=== PATIENT | female | born 1990 | race Caucasian/White ===

== ENCOUNTER 2017-07-11 06:38 | Inpatient (IN) | payer OTHER, SELFPAY ==
[2017-07-11 07:09] VITALS: BMI 27.3
[2017-07-11] MEDS: Lactated Ringers 1,000 ML 50 ML IV ×2 (07:12→09:00)
[2017-07-11 07:35] LABS: Hemoglobin 12.7 g/dl (12.0-15.0); Mean Corp Hgb Conc 33.4 g/gl (32-36); Mean Corpuscular Hgb 30.7 pg (27.0-32.0); Mean Corpuscular Volume 91.8 fL (81-99); Mean Platelet Vol. 10.2 fl (6.2-12.0); Platelet Count 212 K/mm3 (150-450); RBC Distribution Width CV 13.8 % (11.6-14.6); RBC Distribution Width SD 45.7 fl (35.1-43.9); Red Blood Count 4.14 M/mm3 (4.2-5.4); Scan Indicated on CBC? Y/N NO; White Blood Count 12.5 K/mm3 (4.4-11.0)
--- NOTE | 2017-07-11 08:46 | PCM.HP.OB ---
History Date of Admission: 07/11/17 Final JOSE: 07/13/17 Gestational age: 39 Weeks and 5 Days History of this : GBS negative Pertinent Past Medical History: none Allergies No Known Allergies Allergy (Verified 05/23/13 02:11) Current Medications Acetaminophen (Tylenol) 325 - 650 mg PO Q4H PRN PRN PRN Reason: PAIN OR FEVER >100.4F Al Hydroxide/Mg Hydroxide (Mylanta Ii) 15 - 30 ml PO Q4H PRN PRN PRN Reason: INDIGESTION Citric Acid/Sodium Citrate (Bicitra) 30 ml PO UD PRN Lactated Ringer's () 1,000 mls @ 50 mls/hr IV .Q20H BLAKE Oxytocin/Sodium Chloride () 30 units in 500 mls @ 1 mls/hr IV .Q500H BLAKE Nalbuphine HCl (Nubain) 5 - 10 mg IV Q3H PRN PRN PRN Reason: PAIN (4-10/10) Ondansetron HCl (Zofran) 4 mg IV Q8H PRN PRN PRN Reason: NAUSEA Promethazine HCl (Phenergan Iv) 6.25 - 12.5 mg IV Q4H PRN PRN; Protocol PRN Reason: IF NAUSEA PERSISTS Sodium Chloride () 5 - 15 ml IV UD BLAKE Smoking Status: Never smoker Alcohol: None Drug Use: none Number of Fetus(es): 1 Physical Exam General: Alert, Oriented x3 Abdomen: Soft, Non Tender, Non-Distended, Gravid Cervix Dilation (cm): 4 - on admission Assessment/Plan A&P: 27yo female @ 39.5 in labor Admit to L&D Pain - getting epidural now, will recheck cervix once comfortable GBS negative EFW - less than 4500g, patient with adequate pelvis Routine care
--- NOTE | 2017-07-11 10:43 | PCM.OB.VAG ---
Vaginal Delivery Maternal Presentation: Active Labor Amniotic Membrane Rupture Type: Spontaneous Amniotic Fluid Description: Clear Final JOSE: 07/13/17 Gestational age: 39 Weeks and 5 Days Date of Procedure: 07/11/17 Pre-Operative Diagnosis: Labor Post-Operative Diagnosis: Labor Surgery/ Procedure Performed: Spontaneous Vaginal Delivery Type of Anesthesia: Epidural Description of Procedure: patient c/c/+2 and pushing well. she delivered head easily. Gentle traction placed on head to allow delivery of anterior & posterior shoulders. No excess traction placed on head. body followed & placed on maternal abdomen. 3vc clamped & cut in delayed fashion. placenta delivered with gentle traction. good uterine tone obtained. Presentation: JERMAIN Placental Delivery Description: Expressed Cord Vessel Description: 3 Vessels Cord Entanglement: None - cord around body Infant A gender: Male (1 minute): 8 (5 minute): 9 Episiotomy Description: None Laceration: 2nd degree - perineal - repaired with 3-0 vicryl Medications given after delivery: IV Pitocin
[2017-07-11] MEDS: Oxytocin 30 units/NS 500 ml 30 UNITS/500 ML IV.SOLN 334 UNITS IV (12:14)
[2017-07-11] MEDS: Oxytocin 30 units/NS 500 ml 30 UNITS/500 ML IV.SOLN 167 UNITS IV (13:14)
[2017-07-11] MEDS: Acetaminophen 500 MG Tablet 1000 MG PO (13:16)
[2017-07-11] MEDS: Ibuprofen 600 MG Tablet PO ×2 (15:03→21:52)
[2017-07-11] MEDS: 0.9% Saline Lock 10 ML Syringe IV (15:04)
[2017-07-11 16:00] VITALS: BP 127/73; PULSE 103; TEMP 36.6; O2SAT 97
[2017-07-11 20:10] VITALS: BP 116/65; PULSE 92; RESP 16; TEMP 36.4
[2017-07-11 23:50] VITALS: BP 109/59; PULSE 79; RESP 18; TEMP 36.8
[2017-07-12 01:30] VITALS: BP 127/71; PULSE 91; RESP 18; TEMP 36.7
[2017-07-12 04:35] VITALS: BP 117/78; PULSE 87; RESP 16; TEMP 36.7
[2017-07-12] MEDS: Ibuprofen 600 MG Tablet PO (08:55)
[2017-07-12 09:00] VITALS: BP 109/54; PULSE 87; RESP 16; TEMP 36.9; O2SAT 98
--- NOTE | 2017-07-12 12:41 | PCM.DCVAG ---
Discharge Diet: No Restrictions Discharge Activity: May Drive, May Shower May resume sexual activity in: 6 weeks Weight Bearing Status: Weight bearing as tolerated Additional Instructions: If you experience any of the following, contact your healthcare provider. Bleeding that soaks a pad every hour for 2 hours Fever 100.4 or higher Unrelieved incision or abdominal pain Swelling, redness, discharge or bleeding from your incision or episiotomy site Your incision begins to separate Problems urinating (including inability to urinate or burning while urinating). Visual changes Severe headache Flu-like symptoms Pain or redness in one of both of your breasts Pain, warmth, tenderness or swelling in your legs, especially the calf area Frequent nausea and vomiting Symptoms of depression or anxiety If you experience any of the following, call 911 or go to the nearest Emergency Room. Chest pain Problems breathing Seizure activity Partial or complete paralysis of a body part, slurred speech, weakness or drooping of the face, or a sudden inability to walk or hold your balance Allergies/Adverse Reactions: Allergies No Known Allergies Allergy (Verified 05/23/13 02:11) Medications to take at Discharge Vits [Prenatabs FA ] 1 tablet PO DAILY 02/12/15 Orders to be completed after discharge: Electric breast pump Location: None Selected Primary Care Physician: Care Physician,No Primary [Primary Care Provider] -
--- NOTE | 2017-07-12 12:42 | DCINST_ITS ---
Discharge Diet: No Restrictions Discharge Activity: May Drive, May Shower May resume sexual activity in: 6 weeks Weight Bearing Status: Weight bearing as tolerated Additional Instructions: If you experience any of the following, contact your healthcare provider. * Bleeding that soaks a pad every hour for 2 hours * Fever 100.4 or higher * Unrelieved incision or abdominal pain * Swelling, redness, discharge or bleeding from your incision or episiotomy site * Your incision begins to separate * Problems urinating (including inability to urinate or burning while urinating) . * Visual changes * Severe headache * Flu-like symptoms * Pain or redness in one of both of your breasts * Pain, warmth, tenderness or swelling in your legs, especially the calf area * Frequent nausea and vomiting * Symptoms of depression or anxiety If you experience any of the following, call 911 or go to the nearest Emergency Room. * Chest pain * Problems breathing * Seizure activity * Partial or complete paralysis of a body part, slurred speech, weakness or drooping of the face, or a sudden inability to walk or hold your balance Allergies/Adverse Reactions: Allergies No Known Allergies Allergy (Verified 05/23/13 02:11) Medications to take at Discharge Vits [Prenatabs FA ] 1 tablet PO DAILY 02/12/15 Orders to be completed after discharge: Electric breast pump Location: None Selected Primary Care Physician: Care Physician,No Primary [Primary Care Provider] -
[2017-07-12 14:00] VITALS: BP 107/71; PULSE 70; RESP 16; TEMP 36.9; O2SAT 100
--- NOTE | 2017-07-12 14:13 | PCM.PN.BLA ---
Progress Note S: Patient sitting up in bed, bonding with . Patient denies any complaints or concerns today. Patient reports is going well. Patient denies CAMPBELL, dizziness or scotoma. Patient denies any issues with ambulation or urination. Patient desires to be discharged to home. O: VSS, Afebrile. H/H = 12.7/38.0 Nipples without cracks or blisters, no erythema noted Abdomen NT x 4 quadrants, FF midline @ 1FB below umbilicus +2/4 reflexes in LE, no edema, negative calf tenderness noted scant rubra lochia A: 27 y/o , s/p , PPD #1 P: 1) Discharge patient to home pending discharge 2) Anticipatory health teaching for PP period done 3) RTC in 6 weeks to [facility] for PP visit. Jaimee Mcdonald CNM
[2017-07-12] MEDS: Acetaminophen 500 MG Tablet 1000 MG PO (14:27)
--- NOTE | 2017-07-12 17:20 | NURSING ---
0900 While rounding, Mom states that latching is going so much better. Mom encouraged to call if we can be of assistance with latch or for a further consult. Davey
== END 2017-07-12 17:30 | disposition home or self-care (01) | DRG 775 ==
PROVIDERS: Obstetrics & Gynecology; Admitting Provider Obstetrics & Gynecology; Visit Provider Obstetrics & Gynecology
DX: O70.1 Second degree perineal laceration during delivery (principal); Z37.0 Single live birth; Z3A.39 39 weeks gestation of pregnancy
CPT/HCPCS: 59025; 59050; 85027; 86850; 86900; 99218; J7120; A4216; G0378

== ENCOUNTER 2020-09-22 18:55 | Inpatient (IN) | payer OTHER, SELFPAY ==
[2020-09-22] VITALS (8 sets, daily range): BP systolic 112–133; BP diastolic 69–80; PULSE 73–92; TEMP 36.4–37.3; O2SAT 96–97; BMI 26.3
[2020-09-22] MEDS: Lactated Ringers 1,000 ML 50 ML IV (19:45)
[2020-09-22 20:01] LABS: Absolute Lymphocyte Count 1.88 X10^3/uL (0.83-4.51); Basophil# 0.03 X10^3/uL; Basophil% 0.2 % (0-1); Eosinophil# 0.09 X10^3/uL; Eosinophils% 0.7 % (0-5); Hematocrit 36.7 % (37-47); Hemoglobin 12.1 g/dL (12.0-15.0); Lymphocyte # 1.88 X10^3/ul (0.83-4.51); Lymphocyte % 15.4 % (19-41); Mean Corpuscular Hgb 30.1 pg (27.0-32.0); Mean Corpuscular Volume 91.3 fL (81-99); Mean Platelet Vol. 9.9 fl (6.2-12.0); Monocyte# 1.19 X10^3/uL; Monocyte% 9.7 % (0-10); NRBC Flagged by Analyzer 0 % (0-5); Neutrophil # 8.96 X10^3/uL (2.7-7.7); Neutrophil % 73.3 % (47-70); Platelet Count 213 K/mm3 (150-450); RBC Distribution Width CV 13.2 % (11.6-14.6); RBC Distribution Width SD 44.1 fl (35.1-43.9); Red Blood Count 4.02 M/mm3 (4.2-5.4); White Blood Count 12.2 K/mm3 (4.4-11.0)
[2020-09-22] MEDS: 0.9% Normal Saline Single 100 ML IV.SOLN. INTRA-UTER (20:15)
[2020-09-22] MEDS: Oxytocin 30 units/NS 500 ml 30 UNITS/500 ML IV.SOLN IV (20:18)
--- NOTE | 2020-09-22 20:23 | PCM.HP.OB ---
HPI - General General Date of Admission: 09/22/20 HPI Narrative KEILA MALDONADO, is a 30 F who presents at 40w5d for postdates induction of labor. . History of macrosomic 9lb 1oz. No complications this . Maternal Data Information Final JOSE: 09/17/20 Final JOSE Source: LMP PFSH PFS Medical History (Updated 09/22/20 @ 20:44 by Symone Orozco CNM) macrosomia Home Medications Prenatabs FA 1 tab PO DAILY 02/12/15 [History Last Taken 09/21/20 08:00] Allergy/AdvReac Type Severity Reaction Status Date / Time No Known Allergies Allergy Verified 09/22/20 19:37 Surgical History History of surgery Social History Smoking Status: Never smoker History Elective abortions Hx Para 2 Spontaneous abortions Hx # Term Pregnancies Ectopic pregnancies Hx # Pregnancies Multiple births # of living children NST FHR Rate Baby A Baseline: 145 Variability:: Moderate Accelerations:: 15 x 15 Decelerations:: None FHR Category:: Category I Uterine Activity:: Irregular Vital Signs Vital Signs Vital Signs: 09/22/20 19:41 Temperature 99.2 F H Temperature Source Temporal Pulse Rate 92 Blood Pressure 133/80 H BP Systolic 133 BP Diastolic 80 Pulse Ox 97 Weight Weight: 173 lb Body Mass Index (BMI) 26.3 Physical Exam Narrative Reyes catheter inserted over stylus into cervical os without difficulty. 30ml NS instilled. Const alert and oriented x3 General Appearance: cooperative Orientation / Consciousness: awake, oriented to person, oriented to place and oriented to time Exam Limitations: no limitations HEENT normocephalic Head and Scalp: normal to inspection, normocephalic and atraumatic Face and Sinus: normal facial exam Eyes General Eye: normal appearance of both eyes Neck full ROM Chest Chest: symmetrical chest wall rise Resp normal respiratory effort and normal air movement Auscultation: clear to auscultation bilaterally Cardio regular rate, regular rhythm, S1 normal heart sound, S2 normal heart sound, no murmurs, no rub, no gallops and no clicks GI normal to inspection, nondistended, normoactive bowel sounds and non-tender appearance of the vagina normal Bladder / Kidney Exam: no CVA tenderness Manual OB Exam: estimated gestational size appropriate, presentation cephalic, dilated 1 cm, effaced 50 and station -2 Back/Spine normal ROM Extremity normal to inspection and full ROM Skin no rashes or lesions noted Neuro oriented x3, CN's II-XII intact bilaterally and moves all extremities Sensorium / Orientation: awake, alert and oriented to person Motor Exam: clonus absent Deep Tendon Reflexes: Rt Patellar (L4): 2+ and Lt Patellar (L4): 2+ Labs Labs Labs: Blood Type A POSITIVE Antibody Screen NEGATIVE Hct 36.7 % (37-47) L Hgb 12.1 g/dL (12.0-15.0) Rhogam given: No RPR negative HIV negative A positive, antibody screen negative Rubella Immune HBsAG Negative Hep C Negative COVID negative GBS negative Urine tox negative GC/CT negative Assessment & Plan (1) Post-dates : (2) Encounter for induction of labor: (3) History of delivery of macrosomal infant: PLAN: 1)Admit to labor and delivery 2) IV, routine labs 3) GBS negative 4) COVID negative 5) Continuous EFM 6) Reyes with low dose pitocin for induction of labor 7) Epidural per patient request for pain management 8) Dr. Keating collaborative physician and notified of patient status.
[2020-09-23] VITALS (44 sets, daily range): BP systolic 101–170; BP diastolic 54–91; PULSE 58–110; RESP 16–18; TEMP 36.2–37.3; O2SAT 94–99
[2020-09-23] MEDS: Lactated Ringers 500 ML 999 ML IV (03:51)
[2020-09-23] MEDS: fentaNYL-bupivacaine (epidural) 100 ML BAG EPIDURAL ×2 (05:05→09:10)
[2020-09-23] MEDS: Lactated Ringers 1,000 ML 200 ML IV (07:09)
--- NOTE | 2020-09-23 08:11 | PN_ITS ---
Subjective Subjective Resting with epidural in bed. at bedside. Objective Data Objective Data Vital Signs: Vital Signs Temp Pulse BP Pulse Ox 97.3 F L 76 110/57 L 99 09/23/20 07:18 09/23/20 07:18 09/23/20 07:18 09/23/20 06:48 Weight: 173 lb Body Mass Index (BMI) 26.3 Intake & Output: Intake and Output for Last 24 Hours 09/21/20 09/22/20 09/23/20 23:59 23:59 23:59 Intake Total 21.3 / 21.3 1545.47 / 1545.47 Output Total 400 / 400 1200 / 1200 Balance -378.7 / -378.7 345.47 / 345.47 Lab / Micro Data Result Diagrams: 09/22/20 19:45 Labs: Laboratory Results - last 24 hr 09/22/20 09/22/20 19:45 19:45 WBC 12.2 H RBC 4.02 L Hgb 12.1 Hct 36.7 L MCV 91.3 MCH 30.1 MCHC 33.0 RDW Std Deviation 44.1 H RDW Coeff of Ne 13.2 Plt Count 213 MPV 9.9 Immature Gran % (Auto) 0.700 Neut % (Auto) 73.3 H Lymph % (Auto) 15.4 L [place] % (Auto) 9.7 Eos % (Auto) 0.7 Baso % (Auto) 0.2 Absolute Neuts (auto) 9.0 H Absolute Lymphs (auto) 1.88 Nucleated RBC % 0 Blood Type A POSITIVE Antibody Screen NEGATIVE Physical Exam Narrative FHT 130, moderate variability, accels, early and occasional variable decels Category 2 TOCO:every 2-3 minutes Cervix: vertex, 5cm/70%/-1 AROM for small amount of meconium stained fluid Assessment & Plan Assessment/Plan (1) Post-dates : (2) Encounter for induction of labor: (3) History of delivery of macrosomal infant: PLAN: 1) Continue with active management, pitocin at 20 mu's 2) AROM, meconium stained fluid, pediatricians to be present at delivery 3) Epidural effective for pain management 4) Positional changes and peanut ball 5) notified of patient status
[2020-09-23] MEDS: Oxytocin 30 units/NS 500 ml 30 UNITS/500 ML IV.SOLN 334 UNITS IV (10:03)
--- NOTE | 2020-09-23 10:23 | EX.PCM.OBRPT ---
Maternal Data Information Final JOSE: 09/24/20 Final JOSE Source: LMP Gestational age: 40W6D Vaginal Delivery Maternal Presentation Maternal Presentation: Medically Indicated Induction Maternal Presentation: POSTDATES Type of Induction: Pitocin and Reyes Bulb Operative Information Date of Procedure: 09/23/20 Pre-Operative Diagnosis: postdates induction of labor Post-Operative Diagnosis: , first degree perineal laceration Surgery / Procedure Performed: Spontaneous Vaginal Delivery Type of Anesthesia: Epidural Estimated Blood Loss: 300ml Time of Delivery: 09:59 Findings Description of Procedure: Progressed from 6cm to complete quickly and feeling urge to push. of viable male infant over first degree perineal laceration. APGARS 9,9. head delivered with body forthcoming. Infant placed on maternal abdomen, spontaneous cry, mouth and nares suctioned for secretions. Pitocin started for active 3rd stage management. Placenta delivered with expression, intact via chucky, 3 vessel cord. perineum inspected and revealed first degree perineal laceration. Repaired with 3.0 vicryl and epidural analgesia, well approximated and hemostasis achieved. Fundus firm, EBL 300ml. Vaginal sweep completed, sponge and instrument count correct. Mom and baby stable, planning to breastfeed. Family bonding well. notified. Presentation: JERMAIN Amniotic Membrane Rupture Type: Artificial Amniotic Fluid Description: Clear Placental Delivery Description: Spontaneous Placenta Disposition: [facility] Cord Vessel Description: 3 Vessels Cord Entanglement: None A Gender: Male (1 minute): 9 (5 minute): 9 Delayed Cord Clamping: Yes Post Vaginal Delivery Medications Given After Delivery: IV Pitocin Episiotomy Description: None Laceration: Perineal Extension/lac and 1st degree Complication Complications: None
[2020-09-23] MEDS: 0.9% Saline Lock 10 ML Syringe IV (12:59)
[2020-09-23] MEDS: Ibuprofen 600 MG Tablet PO (17:09)
[2020-09-24 00:25] VITALS: BP 125/58; PULSE 72; RESP 18; TEMP 36.7
[2020-09-24 04:22] VITALS: BP 129/56; PULSE 75; RESP 18; TEMP 36.4
[2020-09-24 04:49] LABS: Hematocrit 35.5 % (37-47); Hemoglobin 11.9 g/dL (12.0-15.0); Mean Corp Hgb Conc 33.5 g/dL (32-36); Mean Corpuscular Hgb 30.7 pg (27.0-32.0); Mean Corpuscular Volume 91.5 fL (81-99); Mean Platelet Vol. 9.7 fl (6.2-12.0); Platelet Count 198 K/mm3 (150-450); RBC Distribution Width CV 13.4 % (11.6-14.6); Red Blood Count 3.88 M/mm3 (4.2-5.4); White Blood Count 16.2 K/mm3 (4.4-11.0)
--- NOTE | 2020-09-24 07:48 | PCM.PROGNOTE ---
Subjective Subjective Doing well per patient and nursing staff. Ambulating and taking PO without difficulty. Voiding and passing flatus. . Denies headache, visual changes, chest pain, shortness of breath, leg pain, increased bleeding or clots. Lochia normal. Pain controlled. Planning D/C home today. Objective Data Objective Data Vital Signs: Vital Signs Temp Pulse Resp BP Pulse Ox 97.5 F L 75 18 129/56 H 98 09/24/20 04:22 09/24/20 04:22 09/24/20 04:22 09/24/20 04:22 09/23/20 12:20 Oxygen Delivery Method Room Air Weight: 173 lb Body Mass Index (BMI) 26.3 Intake & Output: Intake and Output for Last 24 Hours 09/22/20 09/23/20 09/24/20 23:59 23:59 23:59 Intake Total 21.3 / 21.3 2783.14 / 2783.14 Output Total 400 / 400 3100 / 3100 Balance -378.7 / -378.7 -316.86 / -316.86 Lab / Micro Data Result Diagrams: 09/24/20 04:35 Labs: Laboratory Results - last 24 hr 09/24/20 04:35 WBC 16.2 H RBC 3.88 L Hgb 11.9 L Hct 35.5 L MCV 91.5 MCH 30.7 MCHC 33.5 RDW Std Deviation 45.0 H RDW Coeff of Ne 13.4 Plt Count 198 MPV 9.7 Physical Exam Const alert and oriented x3 General Appearance: cooperative Orientation / Consciousness: awake, oriented to person, oriented to place and oriented to time Exam Limitations: no limitations HEENT normocephalic Head and Scalp: normal to inspection, normocephalic and atraumatic Face and Sinus: normal facial exam Eyes General Eye: normal appearance of both eyes Neck full ROM Chest Chest: symmetrical chest wall rise Resp normal respiratory effort and normal air movement Auscultation: clear to auscultation bilaterally Cardio regular rate, regular rhythm, S1 normal heart sound, S2 normal heart sound, no murmurs, no rub, no gallops and no clicks GI normal to inspection, nondistended, normoactive bowel sounds and non-tender GI Narrative: fundus firm 2 below U appearance of the vagina normal Bladder / Kidney Exam: no CVA tenderness Back/Spine normal ROM Extremity normal to inspection and full ROM Skin no rashes or lesions noted Neuro oriented x3, CN's II-XII intact bilaterally and moves all extremities Sensorium / Orientation: awake, alert and oriented to person Motor Exam: clonus absent Deep Tendon Reflexes: Rt Patellar (L4): 2+ and Lt Patellar (L4): 2+ Assessment & Plan Assessment/Plan (1) Vaginal delivery: (2) First degree perineal laceration: PLAN: 1) Routine and discharge instructions 2) instructions 3) Declines prescription for pain medication 4) Vitals stable 5) Hgb stable 6) D/C home today 7) Follow up in 2 weeks and 6 weeks for PP care
[2020-09-24 07:51] VITALS: BP 111/82; PULSE 87; RESP 16; TEMP 36.6
--- NOTE | 2020-09-24 07:53 | PCM.DC ---
Discharge Instructions Diet Discharge Diet: No restrictions Activity Discharge Activity: Return to Normal Activity May resume sexual activity in: 6 weeks Weight Bearing Status: Full weight bearing Dressing / Incision Call your doctor if your incision/area has: Sudden Increased Bleeding, Increased Pain/ Swelling, Increased Redness and Foul Smelling Discharge Call your doctor if you observe: Fever of 101 or Higher, Inability to urinate, Inability to have a bowel movement, Using more than one pad per hour, Shortness of breath, Dizziness, Fainting spells, Chest pain, Increased palpitations (irregular heartbeat), Calf discomfort and Uncontrolled pain Follow Up Care Please Follow Up With: Symone Orozco CNM When: 2 weeks for virtual visit and 6 weeks for visit Test Results: Test results from this visit will be discussed in further detail at your follow-up appointment, if applicable. Discharge Plan Admission Admit Date/Time: 09/22/20 18:55 Primary Reason for Your Visit: Induction of labor, vaginal delivery Attending Provider: Symone Orozco Primary Care Provider: Care Physician,Naomi Primary Instructions Patient Instructions: After a Vaginal , at Home Discharge Orders/Prescriptions Prescriptions: New acetaminophen 500 mg Tablet 1,000 mg PO Q6H PRN PRN (Reason: Pain 1-10 Or Fever) Qty: 0 RF: 0 Dermoplast (with menthol) 20-0.5 % Aerosol 1 applic topical TID PRN PRN (Reason: for perineal discomfort) Qty: 0 RF: 0 ibuprofen 600 mg Tablet 600 mg PO Q6H PRN PRN (Reason: Pain Score 1-3) Qty: 0 RF: 0 Continued Prenatabs FA 1 TABLET tablet 1 tab PO DAILY RF: 0 Referrals / Follow Up: Symone Orozco CNM [Certified Nurse Health Promotion Manager] - Within 2 Weeks (2 weeks virtual visit and 6 weeks in office) Care Physician,No Primary [Primary Care Provider] - Disposition Disposition (needs filled in before D/C Order can be placed): Home, self care
--- NOTE | 2020-09-28 15:06 | NURSING ---
Left voicemail for follow up phone call no answer.
== END 2020-09-24 12:00 | disposition home or self-care (01) | DRG 807 ==
PROVIDERS: Admitting Provider Advanced Practice Midwife; Visit Provider Advanced Practice Midwife
DX: O48.0 Post-term pregnancy (principal); Z37.0 Single live birth; Z3A.40 40 weeks gestation of pregnancy; O77.0 Labor and delivery complicated by meconium in amniotic fluid; O70.0 First degree perineal laceration during delivery
CPT/HCPCS: 59025; 59050; 85025; 85027; 86850; 86900; 86901; 99218; J7120; A4216; G0378

== ENCOUNTER → 2022-05-02 | Outpatient (CLI) | payer OTHER, SELFPAY | END | disposition home or self-care (01) | LOC: LABSPEC 15:25 | PROVIDERS: Referring Provider Family Medicine; Visit Provider Family Medicine | DX: N39.0 Urinary tract infection, site not specified (principal) | CPT/HCPCS: 87086; 87088; 87186 ==

== ENCOUNTER → 2022-06-03 | Outpatient (CLI) | payer OTHER, SELFPAY | END | disposition home or self-care (01) | LOC: LABSPEC 12:09 | PROVIDERS: PCP Nurse Practitioner Family; Referring Provider Nurse Practitioner Family; Visit Provider Nurse Practitioner Family | DX: R31.9 Hematuria, unspecified (principal) | CPT/HCPCS: 87086; 87088; 87186 ==

== ENCOUNTER → 2022-09-10 | Outpatient (CLI) | payer OTHER, SELFPAY | END | disposition home or self-care (01) | LOC: LABSPEC 10:32 | PROVIDERS: PCP Nurse Practitioner Family; Referring Provider Family Medicine; Visit Provider Family Medicine | DX: R31.9 Hematuria, unspecified (principal) | CPT/HCPCS: 87086 ==

== ENCOUNTER → 2022-10-30 | Outpatient (CLI) | payer OTHER, SELFPAY | END | disposition home or self-care (01) | LOC: LABSPEC 12:42 | PROVIDERS: PCP Nurse Practitioner Family; Referring Provider Family Medicine; Visit Provider Family Medicine | DX: N39.0 Urinary tract infection, site not specified (principal) | CPT/HCPCS: 87077; 87086; 87088; 87186 ==

== ENCOUNTER → 2022-11-16 | Outpatient (CLI) | payer OTHER, SELFPAY ==
--- NOTE | 2022-11-16 07:48 | US_ITS ---
STUDY: RENAL ULTRASOUND - COMPLETE REASON FOR EXAM: Female, 32 years old. UTI TECHNIQUE: Ultrasound evaluation of the kidneys was performed with real-time and static ellington-scale imaging. COMPARISON: None. FINDINGS: RIGHT KIDNEY: Normal location of the right kidney, which is normal in size. The right kidney measures 10.6 cm. There is a normal cortex of the right kidney. The renal cortex measures 1.1 cm. There is no right renal mass or cyst. There are no right renal calculi. There is no right hydronephrosis. DISTAL RIGHT URETER: There is non-visualization of the distal right ureter. There is no demonstrated right ureterovesical junction calculus. There is a visualized right ureteral jet. LEFT KIDNEY: Normal location of the left kidney, which is normal in size. The left kidney measures 12.0 cm. There is a normal cortex of the left kidney. The renal cortex measures 1.9 cm. There is no left renal mass or cyst. There are no left renal calculi. There is no left hydronephrosis. DISTAL LEFT URETER: There is non-visualization of the distal left ureter. There is no demonstrated left ureterovesical junction calculus. There is a visualized left ureteral jet. BLADDER: The distended urinary bladder has a volume of 32 ml. The empty urinary bladder has a volume of ml. There is a normal wall thickness of the distended urinary bladder. There is no demonstrated mass within the urinary bladder. There are no demonstrated bladder calculi. US/Kidney and Bladder IMPRESSION: Normal ultrasound of the kidneys and urinary bladder. Electronically Signed: Reji Ruiz MD at 10:15 EDT ,
== END | disposition home or self-care (01) ==
LOC: US 07:42
PROVIDERS: PCP Family Medicine; Referring Provider Urology; Visit Provider Urology
DX: N39.0 Urinary tract infection, site not specified (principal)
CPT/HCPCS: 76770

== ENCOUNTER → 2023-12-15 | Outpatient (CLI) | payer OTHER, SELFPAY | END | disposition home or self-care (01) | LOC: MTLAB 12:55 | PROVIDERS: PCP Family Medicine; Referring Provider Physician Assistant; Visit Provider Physician Assistant | DX: L40.0 Psoriasis vulgaris (principal); Z79.899 Other long term (current) drug therapy | CPT/HCPCS: 36415; 86480 ==

== ENCOUNTER → 2024-01-07 | Outpatient (CLI) | payer OTHER, SELFPAY ==
[2024-01-09 16:10] LABS: QNTFERON TB Mitogen Value > 10.00 IU/mL (.); QNTFERON TB Nil Value 0.03 IU/mL (.); QNTFERON TB1+ Ag Value 0.04 IU/mL (.); QNTFERON TB2+ Ag Value 0.05 IU/mL (.); QNTIFERON TB Positive Criteria Negative (Negative)
== END | disposition home or self-care (01) ==
PROVIDERS: PCP Family Medicine; Referring Provider Physician Assistant; Visit Provider Physician Assistant
DX: L40.0 Psoriasis vulgaris (principal); Z79.899 Other long term (current) drug therapy
CPT/HCPCS: 36415; 86480

== ENCOUNTER 2024-05-31 12:39 | Emergency (ER) | payer OTHER, SELFPAY ==
[2024-05-31 12:40] VITALS: BP 126/56; PULSE 132; RESP 26; TEMP 37.7; O2SAT 100; BMI 23.6
--- NOTE | 2024-05-31 12:51 | RAD_ITS ---
PROCEDURE: CHEST 1 VIEW (PORTABLE) REASON FOR EXAM: Shortness of breath. TECHNIQUE: Frontal view of the chest. COMPARISON: None. FINDINGS: The cardiac and mediastinal contours are normal. No acute consolidation, pleural effusion or pneumothorax. The visualized osseous structures demonstrate no acute abnormality. RAD/Chest 1 View (Portable) IMPRESSION: No acute consolidation, pleural effusion or pneumothorax. Reading Location: [id number]
[2024-05-31 13:15] LABS: Absolute Lymphocyte Count 0.88 X10^3/uL (0.83-4.51); Absolute Neutrophil Count 5.4 X10^3/uL (2.0-7.7); Basophil# 0.02 X10^3/uL; Basophil% 0.3 % (0-1); Hematocrit 39.5 % (37-47); Hemoglobin 13.1 g/dL (12.0-15.0); Lymphocyte # 0.88 X10^3/ul (0.83-4.51); Lymphocyte % 12.7 % (19-41); Mean Corp Hgb Conc 33.2 g/dL (32-36); Mean Corpuscular Hgb 28.6 pg (27.0-32.0); Mean Corpuscular Volume 86.2 fL (81-99); Mean Platelet Vol. 9.6 fl (6.2-12.0); Monocyte# 0.64 X10^3/uL; Monocyte% 9.2 % (0-10); NRBC Flagged by Analyzer 0 % (0-5); Neutrophil # 5.38 X10^3/uL (2.7-7.7); Neutrophil % 77.4 % (47-70); Platelet Count 190 K/mm3 (150-450); RBC Distribution Width CV 12.5 % (11.6-14.6); RBC Distribution Width SD 39.1 fl (35.1-43.9); Red Blood Count 4.58 M/mm3 (4.2-5.4)
[2024-05-31 13:24] LABS: Anion Gap 10 (5-15); BUN 8 mg/dL (7-18); BUN/Creat Ratio 11.1 RATIO (10-20); Calcium,Total 8.8 mg/dL (8.5-10.1); Chloride 107 mmol/L (98-107); Creatinine, Serum 0.72 mg/dL (0.55-1.02); EST Glomerular Filtration Rate 98 mL/min (>60); Est Glom Filt Rate - Afr Amer 119 mL/min (>60); Estimated Creatinine Clearance 111.06 ml/min; Glucose 119 mg/dL (74-106); Potassium 3.3 mmol/L (3.5-5.1); Sodium Level 138 mmol/L (136-145)
[2024-05-31 13:43] VITALS: BP 116/67; PULSE 98; RESP 16; TEMP 37.4; O2SAT 100; O2SAT 98
--- NOTE | 2024-05-31 14:25 | EDS_ITS ---
HPI HPI - URI History of Present Illness Chief Complaint: Shortness of Breath Detail of Chief Complaint: Shortness of breath Informant: patient Narrative Narrative: Patient presents with shortness of breath and some chest tightness that started yesterday. She describes a cough and fever up to 100.1. Multiple family members at home ill with flulike symptoms. Patient had some nausea as well and vomited once yesterday and once today. She denies diarrhea. She denies abdominal pain. She denies urinary symptoms. Last menstrual period was 2 weeks ago and she does not believe she is ROS ROS ED Review of Systems ROS Unobtainable: other Constitutional Constitutional ED: Reports chills, fever(s) and lethargy; Denies sweats or weight loss Eyes Eyes: Denies blurry vision, change in vision or diplopia ENT ENT ED: Denies rhinorrhea or sore throat Cardiovascular Cardiovascular: Reports chest pain and racing heartbeat; Denies orthopnea Respiratory/Chest Respiratory/Chest: Reports cough and dyspnea; Denies dyspnea on exertion or orthopnea Gastrointestinal Gastrointestinal: Denies abdominal pain, diarrhea, nausea or vomiting Genitourinary Genitourinary ED: Denies dysuria, hematuria or urinary frequency Musculoskeletal Musculoskeletal: Denies arthralgias, back pain, myalgias or neck pain Integumentary Denies abscess, Abrasions or rash Neurologic Neurologic: Denies headache(s) or weakness Psychiatric Psychiatric: Denies anxiety, depression or suicidal thoughts Endocrine Endocrinology: Denies polydipsia, polyphagia or polyuria Hematologic/Lymphatic Hematologic/Lymphatic: Denies easy bleeding, easy bruising or lymphadenopathy Allergic/Immunologic Allergic/Immunologic ED: Denies mouth swelling, tongue swelling or urticaria [facility] Medical History (Updated 05/31/24 @ 15:[address] Symone Ma, DO) macrosomia Home Medications ?Medication ?Instructions ?Recorded ?Last Taken ?Type vits,calcium no.78-iron 1 tab PO DAILY pregna ncy 02/12/15 09/21/20 08:00 History fumarate-folic acid 29 mg-1 mg tablet (Prenatabs FA) acetaminophen 500 mg tablet 1,000 mg (2 x 500 mg) PO Q 6H PRN 09/24/20 Unknown Rx PRN Pain 1-10 Or Fever #0 tabs benzocaine 20 %-menthol 0.5 % 1 applic topical TID PRN PRN for 09/24/20 Unknown Rx topical aerosol (Dermoplast (with perineal discomfort #0 grams menthol)) ibuprofen 600 mg tablet 600 mg PO Q6H PRN PRN Pain S core 09/24/20 Unknown Rx 1-3 #0 tabs lorazepam 1 mg tablet (Ativan) 1 mg PO TID PRN anxiety #10 tabs 05/31/24 Unknown Rx Allergy/AdvReac Type Severity Reaction Status Date / Time No Known Allergies Allergy Verified 05/31/24 12:40 Surgical History History of surgery Social History Smoking Status: Never smoker EXAM Physical Exam Const Vital Signs: 05/31/24 12:40 05/31/24 13:43 05/31/24 13:43 Temperature 99.8 F H 99.4 F H Temperature Source Oral Oral Pulse Rate 132 H 98 Respiratory Rate 26 H 16 Respiratory Effort Respiratory Depth Respiratory Pattern Blood Pressure 126/56 H 116/67 Blood Pressure Mean 79 83 Pulse Ox 100 98 Oxygen Delivery Method Room Air Room Air Room Air 05/31/24 13:43 05/31/24 13:43 05/31/24 14:40 Temperature Temperature Source Pulse Rate 87 Respiratory Rate 16 16 Respiratory Effort Normal Short of Breath Respiratory Depth Shallow Respiratory Pattern Tachypnea Blood Pressure 117/87 H Blood Pressure Mean 97 Pulse Ox 100 98 Oxygen Delivery Method Room Air Room Air 05/31/24 14:47 Temperature Temperature Source Pulse Rate 89 Respiratory Rate 16 Respiratory Effort Respiratory Depth Respiratory Pattern Blood Pressure Blood Pressure Mean Pulse Ox Oxygen Delivery Method Positive well nourished and well developed General Appearance ED: well developed and NAD HEENT Reports TM's clear and moist mucous membranes normocephalic and atraumatic; Negative for trauma or tenderness Tympanic Membrane ED: Yes TM's clear Eyes PERRL and EOMs intact bilaterally General Eye ED: Negative for pale conjunctiva or scleral icterus Neck no lymphadenopathy, supple and no JVD General: Negative for tenderness Chest Wall inspection of chest normal and palpation of chest normal Chest: Negative for tenderness Resp normal respiratory effort and clear to auscultation bilaterally Effort and Inspection: Negative for respiratory distress or pain with movement Auscultation: Negative for rhonchi, wheezes or diminished lung sounds Cardio regular rate, regular rhythm, S1 normal heart sound, S2 normal heart sound and no murmurs Peripheral Pulses: pulses 2+ throughout GI normal to inspection, nondistended, normoactive bowel sounds, soft to palpation, non-tender, non-distended and no masses Back/Spine no CVA tenderness and no thoracic nor lumbar tenderness Extremity normal to inspection General Extremety ED: Negative for edema General Extremity: Negative for edema Neuro oriented x3, CN's II-XII intact bilaterally, no sensory deficits noted and gait normal Sensorium / Orientation: awake, alert, oriented to person, oriented to place and oriented to time Motor Exam: strength 5/5 throughout and strength abnormal Psych mental status grossly normal Skin no rashes or lesions noted and no wounds MDM MDM MDM Narrative Medical decision making narrative: Patient presents with shortness of breath and recent exposure to family members who have been ill with upper respiratory symptoms. She presents via EMS for dyspnea. Apparently nursing staff thought she was hyperventilating on arrival. She does have history of anxiety and for which she takes Zoloft. On arrival clinically looks well and she is in no acute distress. Initially she did not want anything for anxiety. Nursing staff started protocol and got a chest x-ray as well as basic labs. CBC with differential was normal at 7.0 with hemoglobin 13 and platelet count of 190. Chemistries were unremarkable other than slightly depressed potassium at 3.3 for which I will give her 40 mEq of potassium chloride. Chest x-ray was unremarkable. COVID flu and RSV testing was positive for influenza A. Had a discussion with patient and her regarding Tamiflu discussed risks and benefits and they would prefer not to use the [place]s flu. Patient also was given a DuoNeb aerosol on arrival which caused her heart to race but she did not notice significant improvement in her chest tightness or dyspnea. At this time she is asking for some medication for anxiety and I gave her a milligram of Ativan IV. IV. Will discharge to home. Recommended symptomatic relief and treatment for influenza. She will be given as needed Ativan and advised to follow-up with her primary care physician within next 3 to 5 days Lab Data Attestation: I reviewed the patient's lab results. Labs: Laboratory Results - last 24 hr 05/31/24 13:00 WBC 7.0 RBC 4.58 Hgb 13.1 Hct 39.5 MCV 86.2 MCH 28.6 MCHC 33.2 RDW Std Deviation 39.1 RDW Coeff of Ne 12.5 Plt Count 190 MPV 9.6 Immature Gran % (Auto) 0.400 Neut % (Auto) 77.4 H Lymph % (Auto) 12.7 L [place] % (Auto) 9.2 Eos % (Auto) 0.0 Baso % (Auto) 0.3 Absolute Neuts (auto) 5.4 Absolute Lymphs (auto) 0.88 Nucleated RBC % 0 Sodium 138 Potassium 3.3 L Chloride 107 Carbon Dioxide 22.0 Anion Gap 10 BUN 8 Creatinine 0.72 Estim Creat Clear Calc 111.06 Est GFR (MDRD) Af Amer 119 Est GFR (MDRD) Non-Af 98 BUN/Creatinine Ratio 11.1 Glucose 119 H Calcium 8.8 Radiography Diagnostic Testing: Clinical Impression(s) from Imaging Studies Chest X-Ray 05/31/24 12:51 IMPRESSION: No acute consolidation, pleural effusion or pneumothorax. Reading Location: [facility] 1 view chest x-ray obtained interpreted by myself as no evidence of infiltrate or pneumothorax or acute disease process. Radiology in agreement Discharge Plan Triage Chief Complaint: Shortness of Breath ED Provider: Symone Ma Dx/Rx/DC Orders Clinical Impression: Influenza A, Anxiety Instructions: ED Anxiety Reaction, ED Influenza (Adult) Prescriptions: New lorazepam [Ativan] 1 mg tablet 1 mg PO TID PRN (Reason: anxiety) Qty: 10 0RF No Action Prenatabs FA 1 TABLET tablet 1 tab PO DAILY Patient Comments: acetaminophen 500 mg Tablet 1,000 mg PO Q6H PRN PRN (Reason: Pain 1-10 Or Fever) Qty: 0 0RF Dermoplast (with menthol) 20-0.5 % Aerosol 1 applic topical TID PRN PRN (Reason: for perineal discomfort) Qty: 0 0RF Protocol: *Topical Application Instructions APPLICATION INSTRUCTIONS: 3 times a day as needed for perineal discomfort ibuprofen 600 mg Tablet 600 mg PO Q6H PRN PRN (Reason: Pain Score 1-3) Qty: 0 0RF Primary Care Provider: Surinder Soto Referrals: Surinder Soto MD [Primary Care Provider] - 5-7 Days Print Language: Lithuanian Disposition Disposition: Home, Self Care
[2024-05-31 14:40] VITALS: BP 117/87; PULSE 87; RESP 16; O2SAT 98
[2024-05-31] MEDS: Ipratropium/Albuterol Sulfate 3 ML AMPUL.NEB INHALATION (14:43)
[2024-05-31 14:47] VITALS: PULSE 89; RESP 16
[2024-05-31] MEDS: LORazepam 1 MG Tablet PO (15:23)
[2024-05-31] MEDS: Potassium Chloride Oral Tablet 20 MEQ 40 MEQ PO (15:23)
[2024-05-31 15:25] VITALS: BP 112/87; PULSE 92; RESP 16; TEMP 36.6; O2SAT 99
== END 2024-05-31 15:26 | disposition home or self-care (01) ==
LOC: ED 15:13
PROVIDERS: Emergency Provider Emergency Medicine; PCP Family Medicine; Visit Provider Emergency Medicine
DX: J10.1 Influenza due to other identified influenza virus with other respiratory manifestations (principal); F41.9 Anxiety disorder, unspecified
CPT/HCPCS: 71045; 80048; 85025; 87631; 94640; 94760; 99285

== ENCOUNTER → 2025-01-21 | Outpatient (CLI) | payer OTHER, SELFPAY ==
--- OUTSIDE RECORDS SUMMARY | 2025-01-21 10:00 | XMS RPT_ITS | CCD ---
Author Organization [facility] Inform ion Partnership [facility] Care Team Providers Care Physical Scientist Name Role Phone Unavailable Primary Care Provider Surinder Arteaga Primary Care Unavailable Symone Ma Attending Unavailable Surinder Soto Primary Care Unavailable Bhavani Clark Referring Unavailable Bhavani Clark Attending Unavailable Surinder Soto Primary Care Unavailable Bhavani Clark Referring Unavailable Bhavani Clark Attending Unavailable Unavailable Primary Care Provider KRYSTYNA Gomez Attending Unavailable Medications Current Medications Medication Drug Class(es) Dates Sig (Normalized) Sig (Original) acetaminophen 500 mg oral tablet (4 sources) Start: 09-24-2020 take 1000 mg by mouth every six hours as needed Acetaminophen Active 1000 MG PO EVERY 6 HOURS NEEDED 0 September 24, 2020 12:00am benzocaine 200 mg/ml / menthol 5 mg/ml topical spray (4 sources) Standardized Chemical Allergen Start: 09-24-2020 Benzocaine-Menthol (Dermoplast (With Menthol)) 20-0.5 % Aerosol Active 1 APPLIC TOPICAL 3 TIMES DAILY NEEDED 0 September 24, 2020 12:00am cephalexin 500 mg oral capsule (7 sources) Cephalosporin Antibacterial Start: 11-03-2024 End: 11-08-2024 take 1 capsule by mouth twice daily cephALEXin (KEFLEX) 500 mg capsule Indications: Urinary tract infection with hematuria, site unspecified Take 1 capsule by mouth two times a day for 5 days. 10 capsule 11/03/2024 11/08/2024 Active Start: 11-12-2022 take 1 capsule by [facility] once daily at bedtime cephALEXin (KEFLEX) 250 mg capsule Take 250 mg by mouth daily at bedtime. 11/12/2022 Active Comment on above: Take 250 mg by mouth daily at bedtime. clobetasol propionate 0.5 mg/ml topical cream (3 sources) Corticosteroid Start: 09-18-19 clobetasol (TEMOVATE) 0.05 % cream PLEASE SEE ATTACHED FOR DETAILED DIRECTIONS 09/18/2023 Active FLUoxetine 40 mg oral capsule (2 sources) Serotonin Reuptake Inhibitor Start: 08-23-19 25 take 1 capsule by mouth once daily FLUoxetine (PROZAC) 40 mg capsule Take 1 capsule by mouth once daily. 08/22/2024 Active ibuprofen 600 mg oral tablet (4 sources) Nonsteroidal Anti-inflammatory Drug Start: 09-25-19 21 take 600 mg by mouth every six hours as needed Ibuprofen Active 600 MG PO EVERY 6 HOURS NEEDED 0 September 24, 2020 12:00am ketoconazole 20 mg/ml medicated shampoo (3 sources) Azole Antifungal Start: 09-17-19 ketoconazole (NIZORAL) 2 % shampoo WASH THE SCALP EVERY OTHER WASH, LATHERING AND LETTING SIT FOR 3-5 MINUTES BEFORE RINSING. 09/17/2023 Active Vit,Bvrc69-Vcnx-Vnzm c (Prenatabs Fa) 1 TABLET tablet (4 sources) Start: 02-13-20 15 take 1 tablet by mouth once daily Vit,Bvbz28-Uowv-Leyt c (Prenatabs Fa) 1 TABLET tablet Active 1 TABLET PO DAILY February 12, 2015 12:00am Start: 02-12-2015 take 1 tablet by khris th once daily Vit,Aktk57-Xdno-Yhqvx (Prenatab s Fa) 1 TABLET tablet Active 1 TABLET PO DAILY February 11, 2015 11:00pm risankizumab-rzaa (SKYRIZI SUBCUTANEOUS) (3 sources) risankizumab-rza a (SKYRIZI SUBCUTANEOUS) Inject subcutaneously. Active sertraline 100 mg oral tablet (14 sources) Serotonin Reuptake Inhibitor Start: 022 End: 023 take 1.5 tablets by mouth once daily sertraline (ZOLOFT) 100 mg tablet Take 1.5 tablets by mouth once daily. 135 tablet 1 02/11/2022 Active Start: 09-28-2021 End: 12-27-2021 take 2 tablets by mouth once daily sertraline (ZOLOFT) 100 mg tablet Take 2 tablets by mouth once daily. 180 tablet 0 09/28/2021 12/10/2021 Discontinued Start: 06-27-2021 End: 09-28-2021 take 1.5 tablets by mouth once daily sertraline (ZOLOFT) 100 mg tablet Take 1.5 tablets by mouth once daily. 135 tablet 0 06/27/2021 09/28/2021 Discontinued Comment on above: Take 2 tablets by mo uth once daily. Take 1.5 tablets by mouth once daily. valACYclovir 1000 mg oral tablet (1 source) Herpesvirus Nucleoside Analog DNA Polymerase Inhibitor, Herpes Simplex Virus Nucleoside Analog DNA Polymerase Inhibitor, Herpes Zoster Virus Nucleoside Analog DNA Polymerase Inhibitor Start: End: take 1 tablet by mouth three times daily valACYclovir (VALTREX) 1 gram tablet Indications: Herpes zoster with complication Take 1 tablet by mouth three times a day for 7 days. 21 tablet 12/31/2023 01/07/2024 Active Completed/Discontinued Medications Medication Drug Class(es) Dates Sig (Normalized) Sig (Original) norethindrone 0.35 mg oral tablet (3 sources) Start: 11-06-2020 End: 10-31-2021 take 1 tablet by mouth once daily Norethindrone, Contraceptive, (ORTHO MICRONOR) 0.35 mg tablet Take 1 tablet by mouth once daily. 1 Package 11 11/06/2020 10/31/2021 Discontinued (Other) Comment on above: Take 1 tablet by khris th once daily. Vphuxkgc-Gv-Uzx-Fe-F A ( VITAMIN) tab (4 sources) End: 12-10-2021 take 1 tablet by mouth once Pheaweyj-Bc-Odl-Fe -FA ( VITAMIN) tab Take 1 tablet by mouth. 0 12/10/2021 Discontinued (Course of therapy completed) take 1 tablet by mouth once Pren atal Ekqswduj-Wy-Kob-Fe-FA ( VITAMIN) tab Take 1 tablet by mouth. 0 Active Comment on above: Take 1 tablet by khris th. Problems Active Problems Problem Classification Problem Date Documented Da te Episodic/Chronic Anxiety disorders (3 sources) Generalized anxiety disorder; Translations: [Generalized anxiety disorder] Chronic Genitourinary symptoms and ill-defined conditions (3 sources) Increased frequency of urination; Translations: [Frequency of micturition] Onset: 11-03-2024 11-03-2024 Episodic Menstrual disorders (4 sources) Secondary dysmenorrhea; Translations: [Secondary dysmenorrhea] 01-24-2023 Chronic OB-related trauma to perineum and vulva (4 sources) First degree perineal laceration; Translations: [First degree perineal laceration during delivery] 09-24-2020 Episodic Other inflammatory condition of skin (1 source) Psoriasis vulgaris; Translations: [Psoriasis vulgaris] Onset: 02-02-2024 Chronic Other lower respiratory disease (1 source) Shortness of breath; Translations: [Shortness of breath] Onset: 06-16-2024 Episodic Prolonged (4 sources) Post-term ; Translations: [Post-term ] 09-22-2020 Episodic Urinary tract infections (2 sources) Urinary tract infectious disease; Translations: [Urinary tract infection, site not specified] Onset: 11-03-2024 11-03-2024 Episodic Viral infection (1 source) Herpes zoster; Translations: [Zoster with other complications] 12-31-2023 Episodic Past or Other Problems Problem Classification Problem Date Documented Date Episodic/Chronic Other complications of (15 sources) History of delivery of macrosomal infant; Translations: [Supervision of with other poor reproductive or obstetric history, unspecified trimester] Onset: 01-27-2020 01-27-2020 Episodic Other complications of (3 sources) History of perineal laceration; Translations: [Supervision of with other poor reproductive or obstetric history, unspecified trimester] Onset: 12-02-2016 Resolved: 08-26-2017 08-26-2017 Episodic Other and delivery including normal (14 sources) Vaginal delivery; Translations: [Encounter for full-term uncomplicated delivery] Onset: 07-15-2014 Resolved: 10-09-2020 09-24-2020 Episodic Results Test Name Value Interpretation Reference Range Facility Bacteria Ur Culton Bacteria identified Cx Nom (U) CULTURE, URINE: No growth (<1,000 CFU/ml) Normal [facility] Comment on above: Performed By: #### 6 30-4 #### [facility] CLIA [id number] [address] [place] [address] [place] CNOVon 11-03-2024 CNOV Office Visit ([facility]OU[facility]) QUIANA CARMEN ([id number]) 1990 F Date Time Provider Department 11/03/24 11:30 AM KRYSTYNA CARDONA During your visit today, we recorded the following information about you: Temperature Pulse Respiration Blood pressure 98.1 degrees 81/minute 16/minute 110/76 Weight 65.4 kg Krystyna Cardona APRN.[facility] 11/03/2024 11:38 AM Signed [facility] Subjective Quiana Carmen is a 34 year old female. Patient presents with: Urinary Frequency: Frequency, burning and urgency x 1 week HPI Recurrent UTIs: - Dysuria and urinary frequency, similar to previous UTI episodes. - Recent urology visit last month; urologist is currently unavailable. - Took a few doses of low-dose Keflex at home. - History of recurrent UTIs, with 6 episodes in a short period previously. - Was on a prophylactic low-dose Keflex daily for several months. - Concerns about developing a yeast infection after taking a regular dose of Keflex. - Takes cranberry supplements daily. - Denies CVA tenderness or abdominal pain. Review of Systems Gastrointestinal: (-) abdominal pain Genitourinary: (+) dysuria, (+) urinary frequency, (-) flank pain Objective BP 110/76 Pulse 81 Temp 36.7 ?C (98.1 ?F) (Tympanic) Resp 16 Wt 65.4 kg (144 lb 2.9 oz) LMP 01/20/2023 (Exact Date) SpO2 98% BMI 21.92 kg/m? Physical Exam General: No acute distress. CV: Heart sounds normal. Resp: Lung sounds normal. Back: No costovertebral angle tenderness. Abd: No tenderness. { 1. Urinary frequency (R35.0) 2. Urinary tract infection with hematuria, site unspecified (N39.0) - Urinalysis shows hematuria, proteinuria, and pyuria; not definitively positive but consistent with UTI. - Initiated Keflex at standard dosage for 5 days. - Sent urine sample for culture, though results may be compromised due to prior Keflex use. - Advised patient to monitor for signs of worsening infection, including fever, chills, nausea, vomiting, or increased pain, and to seek emergency care if these occur. - Discussed potential for yeast infection secondary to antibiotic use; Diflucan not recommended due to interaction with Prozac. - Recommended use of genitourinary-specific probiotics. - Patient to follow up with urology if symptoms persist or worsen. and Recording using [employer] software for draft documentation of the visit was discussed with the patient/authorized architectural representative; all questions welcomed and answered. Patient/authorized architectural representative agreed to proceed MDM Procedures Allergies As of Date: 11/03/2024 (No Known Allergies) Date Reviewed: 11/03/2024 Reviewed by: Destiny Coates LPN - Fully Assessed Reason for Visit: Urinary Frequency [1086] Cmt: Frequency, burning and urgency x 1 week Primary Visit Diagnosis:Urinary frequency [R35.0] Other Visit Diagnosis:Urinary tract infection with hematuria, site unspecified [N39.0, R31.9] Order(s):UA DIP, URINE (POC) [3851283] Order #: [id number]. #:[id number] BACTERIAL CULTURE, URINE [SQURCUL] Order #: [id number]. #:[id number] cephALEXin (KEFLEX) 500 mg capsuleTake 1 capsule by mouth two times a day for 5 days.Disp: 10 capsuleRfl: 0 Prescriptions as of 11/03/2024 - FLUoxetine (PROZAC) 40 mg capsule Take 1 capsule by mouth once daily. - cephALEXin (KEFLEX) 500 mg capsule Take 1 capsule by mouth two times a day for 5 days. - risankizumab-rzaa (SKYRIZI SUBCUTANEOUS) Inject subcutaneously. - clobetasol (TEMOVATE) 0.05 % cream PLEASE SEE ATTACHED FOR DETAILED DIRECTIONS - ketoconazole (NIZORAL) 2 % shampoo WASH THE SCALP EVERY OTHER WASH, LATHERING AND LETTING SIT FOR 3-5 MINUTES BEFORE RINSING. - cephALEXin (KEFLEX) 250 mg capsule Take 250 mg by mouth daily at bedtime. - sertraline (ZOLOFT) 100 mg tablet Take 1.5 tablets by mouth once daily. Problem List As Of Date 11/03/2024 Noted Resolved Encounter for supervision of other normal pregn*07/15/2014 08/26/2017 History of maternal perineal laceration, curren*12/02/2016 08/26/2017 H/O macrosomia in infant in prior , cu*01/27/2020 Supervision of other normal , antepart*05/26/2020 10/09/2020 Prescriptions ordered this encounter Disp Refills Start End CEPHALEXIN 500 MG CAPSULE 10 c* 0 11/03/2024 11/08/2024 Route: PO Sig: Take 1 capsule by mouth two times a day for 5 days. Encounter Status:Closed by KRYSTYNA CARDONA on 11/03/24 Normal [facility] UA DIP, URINE (POC)on 2024 BILIRUBIN UA (POCT) Negative Negative [facility] CLARITY UA (POCT) Cloudy [facility] COLOR UA (POCT) Dark yellow [facility] GLUCOSE UA (POCT) Negative Negative mg/dL [facility] Hemoglobin Ql (U) Moderate Abnormal Negative [facility] Interpretation and review of laboratory results Abnormal [facility] KETONE UA (POCT) Negative Negative mg/dL [facility] LEUKOCYTES UA (POCT) Moderate Abnormal Negative [facility] NITRITE UA (POCT) Negative Negative [facility] PH UA (POCT) 7 4.5 - 8.0 [facility] Protein Ql (U) 30 mg/dL Abnormal Negative [facility] SPECIFIC GRAVITY UA (POCT) 1.02 1.005 - 1.030 [facility] UROBILINOGEN UA (POCT) 0.2 Normal E.U./dL [facility] Location:[facility], [address], [place], [address] [facility] POINT OF CARE [facility] Basic Metabolic Profile (BMP )on 05-31-2024 BUN/CRE 11.1 RATIO Normal 10- [facility] Comment on above: Performed By: #### L 100.0100, L500.2500 #### [facility] [address] [place], [address] CA,Total 8.8 mg/dL Normal 8.5-10.1 [facility] Comment on above: Performed By: #### L 100.0100, L500.2500 #### [facility] [address] [place], [address] Chloride [Moles/Vol] 107 mmol/L Normal 98-107 [facility] Comment on above: Performed By: #### L 100.0100, L500.2500 #### [facility] [address] [place], [address] CO2 [Moles/Vol] 22.0 mmol/L Normal 21.0-32.0 [facility] Comment on above: Performed By: #### L 100.0100, L500.2500 #### [facility] [address] [place], [address] Creatinine [Mass/Vol] 0.72 mg/dL Normal 0.55-1.02 [facility] Comment on above: Result Comment: The validity of the calculated GFR GFRAA in patients over 70 years has not been determined. Clinical correlation is essential. Performed By: #### L 100.0100, L500.2500 #### [facility] [address] [place], [address] ECRCL 111.06 ml/min Normal [facility] Comment on above: Performed By: #### L 100.0100, L500.2500 #### [facility] [address] [place], [address] EST GFR - AA 119 mL/min Normal >60 [facility] Comment on above: Result Comment: Afri can Slovenian GFR Calc Performed By: #### L 100.0100, L500.2500 #### [facility] [address] [place], [address] GAP 10 Normal 5-15 [facility] Comment on above: Performed By: #### L 100.0100, L500.2500 #### [facility] [address] [place], [address] GFR/1.73 sq M.predicted among non-blacks MDRD (S/P/Bld) [Vol rate/Area] 98 mL/min/{1.73_m2} Normal >60 [facility] Comment on above: Result Comment: Non- GFR Calc Performed By: #### L 100.0100, L500.2500 #### [facility] [address] [place], [address] Glucose [Mass/Vol] 119 mg/dL High 74-106 [facility] Comment on above: Result Comment: Fast ing Glucose result from 100 to 125 mg/dL suggests IMPAIRED HOMEOSTASIS per A.D.A. criteria. Performed By: #### L 100.0100, L500.2500 #### [facility] [address] [place], [address] Potassium [Moles/Vol] 3.3 mmol/L Low 3.5-5.1 [facility] Comment on above: Performed By: #### L 100.0100, L500.2500 #### [facility] [address] [place] [place], [address] Sodium [Moles/Vol] 138 mmol/L Normal 136-145 [facility] Comment on above: Performed By: #### L 100.0100, L500.2500 #### [facility] [address] [place], [address] Urea nitrogen [Mass/Vol] 8 mg/dL Normal 7-18 [facility] Comment on above: Performed By: #### L 100.0100, L500.2500 #### [facility] [address] [place] [place], [address] CBC W/Diff, Automatedon 05-22 0-2024 Absolute Lymph 0.88 X10 3/uL Normal 0.83-4.51 [facility] Comment on above: Performed By: #### L 100.0100, L500.2500 #### [facility] [address] [place], [address] Absolute Neut 5.4 X10 3/uL Normal 2.0-7.7 [facility] Comment on above: Performed By: #### L 100.0100, L500.2500 #### [facility] [address] [place], [address] Basophils/100 WBC (Bld) 0.3 % Normal 0-1 [facility] Comment on above: Performed By: #### L 100.0100, L500.2500 #### [facility] [address] [place], [address] Eosinophils/100 WBC (Bld) 0.0 % Normal 0-5 [facility] Comment on above: Performed By: #### L 100.0100, L500.2500 #### [facility] [address] [place], [address] Erythrocyte distribution width (RBC) [Ratio] 12.5 % Normal 11.6-14.6 [facility] Comment on above: Performed By: #### L 100.0100, L500.2500 #### [facility] [address] [place], [address] Hematocrit (Bld) [Volume fraction] 39.5 % Normal 37-47 [facility] Comment on above: Performed By: #### L 100.0100, L500.2500 #### [facility] [address] [place], [address] Hemoglobin (Bld) [Mass/Vol] 13.1 g/dL Normal 12.0-15.0 [facility] Comment on above: Performed By: #### L 100.0100, L500.2500 #### [facility] [address] [place], [address] IG% 0.400 Normal 0.0-0.9 [facility] Comment on above: Result Comment: IG% - Immature Granulocytes (promyelocytes, myelocytes and metamyelocytes) > 1% indicates that a LEFT SHIFT is Present. Performed By: #### L 100.0100, L500.2500 #### [facility] [address] [place], [address] Lymphocytes/100 WBC (Bld) 12.7 % Low 19-41 [facility] Comment on above: Performed By: #### L 100.0100, L500.2500 #### [facility] [address] [place], [address] MCH (RBC) [Entitic mass] 28.6 pg Normal 27.0-32.0 [facility] Comment on above: Performed By: #### L 100.0100, L500.2500 #### [facility] [address] [place], [address] MCHC (RBC) [Mass/Vol] 33.2 g/dL Normal 32-36 [facility] Comment on above: Performed By: #### L 100.0100, L500.2500 #### [facility] [address] [place], [address] MCV (RBC) [Entitic vol] 86.2 fL Normal 81-99 [facility] Comment on above: Performed By: #### L 100.0100, L500.2500 #### [facility] [address] [place], [address] Monocytes/100 WBC (Bld) 9.2 % Normal 0-10 [facility] Comment on above: Performed By: #### L 100.0100, L500.2500 #### [facility] [address] [place], [address] Neutrophils/100 WBC (Bld) 77.4 % High 47-70 [facility] Comment on above: Performed By: #### L 100.0100, L500.2500 #### [facility] [address] [place], [address] Nucleated RBC (Bld) [#/Vol] 0 10*3/uL Normal 0-5 [facility] Comment on above: Performed By: #### L 100.0100, L500.2500 #### [facility] [address] [place], [address] Platelet mean volume (Bld) [Entitic vol] 9.6 fL Normal 6.2-12.0 [facility] Comment on above: Performed By: #### L 100.0100, L500.2500 #### [facility] [address] [place], [address] Platelets (Bld) [#/Vol] 190 10*3/uL Normal 150-450 [facility] Comment on above: Performed By: #### L 100.0100, L500.2500 #### [facility] [address] [place], [address] RBC (Bld) [#/Vol] 4.58 10*6/uL Normal 4.2-5.4 [facility] Comment on above: Performed By: #### L 100.0100, L500.2500 #### [facility] [address] [place], [address] RDW SD 39.1 fl Normal 35.1-43.9 [facility] Comment on above: Performed By: #### L 100.0100, L500.2500 #### [facility] [address] [place], [address] WBC (Bld) [#/Vol] 7.0 10*3/uL Normal 4.4-11.0 [facility] Comment on above: Performed By: #### L 100.0100, L500.2500 #### [facility] [address] [place], [address] Chest 1 View (Portable)on Chest 1 View (Portable) [facility] Services [address] [place] [address] Chest 1 View (Portable) MR#: [id number] Acct: [id number] Name: QUIANA CARMEN Rep #: [id number] : 1990 F 34 From: Luis F chino MD PCP: Dr. Surinder Soto MD Status: PRE ER Study: Chest 1 View (Portable) Date of Exam: 05/31/24 Exam# [id number] Ordering Dr: Provider,Ed P. PROCEDURE: CHEST 1 VIEW (PORTABLE) REASON FOR EXAM: Shortness of breath. TECHNIQUE: Frontal view of the chest. COMPARISON: None. FINDINGS: The cardiac and mediastinal contours are normal. No acute consolidation, pleural effusion or pneumothorax. The visualized osseous structures demonstrate no acute abnormality. RAD/Chest 1 View (Portable) IMPRESSION: No acute consolidation, pleural effusion or pneumothorax. Reading Location: [id number] CC: Dr. Surinder Soto MD; ED PHYSICIAN PROVIDER [place] [place] Manager: Signed Normal [facility] Emergency Department Summary on 05-31-2024 Emergency Department Summary [facility] Records Department [address] [place] [address] Emergency Department Summary 05/31/24 MR#: [id number] Acct: [id number] Name: QUIANA CARMEN Rep #: [id number] : 1990 34 From: Symone Ma DO PCP: Dr. Surinder Soto MD Status:DEP ER Location: ED HPI HPI - URI History of Present Illness Chief Complaint: Shortness of Breath Detail of Chief Complaint: Shortness of breath Informant: patient Narrative Narrative: Patient presents with shortness of breath and some chest tightness that started yesterday. She describes a cough and fever up to 100.1. Multiple family members at home ill with flulike symptoms. Patient had some nausea as well and vomited once yesterday and once today. She denies diarrhea. She denies abdominal pain. She denies urinary symptoms. Last menstrual period was 2 weeks ago and she does not believe she is ROS ROS ED Review of Systems ROS Unobtainable: other Constitutional Constitutional ED: Reports chills, fever(s) and lethargy; Denies sweats or weight loss Eyes Eyes: Denies blurry vision, change in vision or diplopia ENT ENT ED: Denies rhinorrhea or sore throat Cardiovascular Cardiovascular: Reports chest pain and racing heartbeat; Denies orthopnea Respiratory/Chest Respiratory/Chest: Reports cough and dyspnea; Denies dyspnea on exertion or orthopnea Gastrointestinal Gastrointestinal: Denies abdominal pain, diarrhea, nausea or vomiting Genitourinary Genitourinary ED: Denies dysuria, hematuria or urinary frequency Musculoskeletal Musculoskeletal: Denies arthralgias, back pain, myalgias or neck pain Integumentary Denies abscess, Abrasions or rash Neurologic Neurologic: Denies headache(s) or weakness Psychiatric Psychiatric: Denies anxiety, depression or suicidal thoughts Endocrine Endocrinology: Denies polydipsia, polyphagia or polyuria Hematologic/Lymphatic Hematologic/Lymphatic: Denies easy bleeding, easy bruising or lymphadenopathy Allergic/Immunologic Allergic/Immunologic ED: Denies mouth swelling, tongue swelling or urticaria [facility] Medical History (Updated 05/31/24 @ 15:[address] Symone Ma, DO) macrosomia Home Medications ???Medication ???Instructions ???Recorded ???Last Taken ???Type vits,calcium no.78-iron 1 tab PO DAILY 02/12/15 09/21/20 08:00 History fumarate-folic acid 29 mg-1 mg tablet (Prenatabs FA) acetaminophen 500 mg tablet 1,000 mg (2 x 500 mg) PO Q6H PRN 0 09/24/20 Unknown Rx PRN Pain 1-10 Or Fever #0 tabs benzocaine 20 %-menthol 0.5 % 1 applic topical TID PRN PRN for 0 09/24/20 Unknown Rx topical aerosol (Dermoplast (with perineal discomfort #0 grams menthol)) ibuprofen 600 mg tablet 600 mg PO Q6H PRN PRN Pain Score 0 09/24/20 Unknown Rx 1-3 #0 tabs lorazepam 1 mg tablet (Ativan) 1 mg PO TID PRN anxiety #10 tabs 0 05/31/24 Unknown Rx Allergy/AdvReac Type Severity Reaction Status Date / Time No Known Allergies Allergy Verified 05/31/24 12:40 Surgical History History of surgery Social History Smoking Status: Never smoker EXAM Physical Exam Const Vital Signs: 05/31/24 12:40 05/31/24 13:43 05/31/24 13:43 Temperature 99.8 F H 99.4 F H Temperature Source Oral Oral Pulse Rate 132 H 98 Respiratory Rate 26 H 16 Respiratory Effort Respiratory Depth Respiratory Pattern Blood Pressure 126/56 H 116/67 Blood Pressure Mean 79 83 Pulse Ox 100 98 Oxygen Delivery Method Room Air Room Air Room Air 05/31/24 13:43 05/31/24 13:43 05/31/24 14:40 Temperature Temperature Source Pulse Rate 87 Respiratory Rate 16 16 Respiratory Effort Normal Short of Breath Respiratory Depth Shallow Respiratory Pattern Tachypnea Blood Pressure 117/87 H Blood Pressure Mean 97 Pulse Ox 100 98 Oxygen Delivery Method Room Air Room Air 05/31/24 14:47 Temperature Temperature Source Pulse Rate 89 Respiratory Rate 16 Respiratory Effort Respiratory Depth Respiratory Pattern Blood Pressure Blood Pressure Mean Pulse Ox Oxygen Delivery Method Positive well nourished and well developed General Appearance ED: well developed and NAD HEENT Reports TM's clear and moist mucous membranes normocephalic and atraumatic; Negative for trauma or tenderness Tympanic Membrane ED: Yes TM's clear Eyes PERRL and EOMs intact bilaterally General Eye ED: Negative for pale conjunctiva or scleral icterus Neck no lymphadenopathy, supple and no JVD General: Negative for tenderness Chest Wall inspection of chest normal and palpation of chest normal Chest: Negative for tenderness Resp normal respiratory effort and clear to auscultation bi (more content not included)... Normal [facility] [id number] 05-31-2024 M100.678 Copy of report sent to Infection Control Printer [id number] 05/31/24 1797 JOSE M. RESULTS CALLED TO Chun MA 05/31/24 1430 Katy Rios. REPORT READ BACK BY . SARS-CoV-2 (COVID 19) Negative INFLUENZA A A Positive A INFLUENZA B Negative RSV PCR Negative INFLUENZAE A Normal [facility] Comment on above: Performed By: #### M 100.678 #### [facility] [address] [place], [address] Quantiferon TB-Gold+on 01-08 QFT MITOGEN ASHLEY > 10.00 Normal . [facility] Comment on above: Performed By: #### [id number] #### [facility] [address] [place], [address] QFT NIL VALUE 0.03 IU/mL Normal . [facility] Comment on above: Performed By: #### [id number] #### [facility] [address] [place], [address] QFT TB GOLD+ Comment Normal . [facility] Comment on above: Result Comment: Krishna tiFERON-TB Gold Plus is a qualitative indirect test for M tuberculosis infection (including disease) and is intended for use in conjunction with risk assessment, radiography, and other medical and diagnostic evaluations. The QuantiFERON-TB Gold Plus result is determined by subtracting the Nil value from either TB antigen (Ag) value. The Mitogen tube serves as a control for the test. Performed By: #### [id number] #### [facility] [address] [place], [address] QFT TB POS CRIT Negative Normal Negative [facility] Comment on above: Result Comment: No r esponse to M tuberculosis antigens detected. Infection with M tuberculosis is unlikely, but high risk individuals should be considered for additional testing (ATS/IDSA/CDC Clinical Practice Guidelines, 2017). The reference range is an Antigen minus Nil result of <0.35 IU/mL. The specimen received for QuantiFERON testing was incubated by the ordering institution. Specific procedures outlined in our Directory of Services and in the package insert for the QuantiFERON Gold (In Tube) test must be followed to enable for proper stimulation of cells for the production of interferon gamma. Chemiluminescence immunoassay methodology Performed at: [facility] [id number] Manager Decision Support: Matthew Stiles PhD, Phone: [phone] Performed By: #### [id number] #### [facility] [address] [place], [place], [address] QFT TB1+ AG ASHLEY 0.04 IU/mL Normal . [facility] Comment on above: Performed By: #### [id number] #### [facility] [address] [place], [place], [id number] QFT TB2+ AG ASHLEY 0.05 IU/mL Normal . [facility] Comment on above: Performed By: #### [id number] #### [facility] [address] [place], [place], [id number] CNOVon 12-31-2023 CNOV Office Visit (UCWSTR ) QUIANA CARMEN ([id number]) 1990 F Date Time Provider Department 12/31/23 5:00 PM [facility] During your visit today, we recorded the following information about you: Temperature Pulse Respiration Blood pressure 99 degrees 94/minute 16/minute 102/68 Weight 67.9 kg Krystyna Cardona APRN.STUDIO MANAGER 12/31/2023 5:09 PM Signed Subjective Patient came in with complaints of burning painful rash on the right side. Patient says it started Friday. Patient denies any other symptoms with it. The history is provided by the patient. No medical language specialist was used. Rash Review of Systems Constitutional: Negative. Skin: Positive for rash. Objective Physical Exam Constitutional: Appearance: Normal appearance. Pulmonary: Effort: Pulmonary effort is normal. Chest: Comments: Vesicular rash located in the area marked above consistent with shingles. Neurological: Mental Status: She is alert. No past medical history on file. PAST SURGICAL HISTORY No date: PAST SURGICAL HISTORY OF Comment: wisdom teeth ALLERGIES Patient has no known allergies. MEDICATIONS clobetasol (TEMOVATE) 0.05 % cream PLEASE SEE ATTACHED FOR DETAILED DIRECTIONS ketoconazole (NIZORAL) 2 % shampoo WASH THE SCALP EVERY OTHER WASH, LATHERING AND LETTING SIT FOR 3-5 MINUTES BEFORE RINSING. sertraline (ZOLOFT) 100 mg tablet Take 1.5 tablets by mouth once daily. risankizumab-rzaa (SKYRIZI SUBCUTANEOUS) Inject subcutaneously. valACYclovir (VALTREX) 1 gram tablet Take 1 tablet by mouth three times a day for 7 days. cephALEXin (KEFLEX) 250 mg capsule Take 250 mg by mouth daily at bedtime. (Patient not taking: Reported on 12/31/2023) FAMILY HISTORY Problem Relation Age of Onset No Known Problems Mother Heart Father Heart Attack Father No Known Problems Brother Psychiatry Brother by suicide No Known Problems Maternal Grandmother No Known Problems Maternal Grandfather Heart Paternal Grandmother No Known Problems Son No Known Problems Son Social History Tobacco Use Smoking status: Never Smokeless tobacco: Never Vaping Use Vaping status: Never Used Substance Use Topics Alcohol use: Not Currently Drug use: No ASSESSMENT/PLAN: 1. Herpes zoster with complication - ICD9: 053.8, ICD10: B02.8 - VALACYCLOVIR 1 GRAM TABLET Patient was educated about proper use of medication and supportive therapies. Patient will follow-up with signs and symptoms seem to be any worse not better. Patient was okay with this care plan. Krystyna Cardona APRN.STUDIO MANAGER Allergies As of Date: 12/31/2023 (No Known Allergies) Date Reviewed: 12/31/2023 Reviewed by: Carri Melgar MA - Fully Assessed Reason for Visit: Rash [1087] Cmt: right side, painful x 3 days Primary Visit Diagnosis:Herpes zoster with complication [B02.8] Order(s):valACYclovir (VALTREX) 1 gram tabletTake 1 tablet by mouth three times a day for 7 days.Disp: 21 tabletRfl: 0 Prescriptions as of 12/31/2023 - risankizumab-rzaa (SKYRIZI SUBCUTANEOUS) Inject subcutaneously. - clobetasol (TEMOVATE) 0.05 % cream PLEASE SEE ATTACHED FOR DETAILED DIRECTIONS - ketoconazole (NIZORAL) 2 % shampoo WASH THE SCALP EVERY OTHER WASH, LATHERING AND LETTING SIT FOR 3-5 MINUTES BEFORE RINSING. - valACYclovir (VALTREX) 1 gram tablet Take 1 tablet by mouth three times a day for 7 days. - cephALEXin (KEFLEX) 250 mg capsule Take 250 mg by mouth daily at bedtime. - sertraline (ZOLOFT) 100 mg tablet Take 1.5 tablets by mouth once daily. Problem List As Of Date 12/31/2023 Noted Resolved Encounter for supervision of other normal pregn*07/15/2014 08/26/2017 History of maternal perineal laceration, curren*12/02/2016 08/26/2017 H/O macrosomia in infant in prior , cu*01/27/2020 Supervision of other normal , antepart*05/26/2020 10/09/2020 Prescriptions ordered this encounter Disp Refills Start End VALACYCLOVIR 1 GRAM TABLET 21 t* 0 12/31/2023 01/07/2024 Route: ORAL Sig: Take 1 tablet by mouth three times a day for 7 days. Encounter Status:Closed by KRYSTYNA CARDONA on 12/31/23 Normal [facility] Quantiferon TB-Gold+on 12-14 QFT MITOGEN ASHLEY Normal [facility] Comment on above: Result Comment: LOST AT [facility] Performed By: #### [id number] #### [facility] [address] [place], [address] QFT NIL VALUE Normal [facility] Comment on above: Result Comment: LOST AT [facility] Performed By: #### [id number] #### [facility] [address] [place], [address] QFT TB GOLD+ Normal [facility] Comment on above: Result Comment: LOST AT [facility] Performed By: #### [id number] #### [facility] [address] [place], [address] QFT TB POS CRIT Normal [facility] Comment on above: Result Comment: LOST AT [facility] Performed By: #### [id number] #### [facility] [address] [place], [address] QFT TB1+ AG ASHLEY Normal [facility] Comment on above: Result Comment: LOST AT [facility] Performed By: #### [id number] #### [facility] [address] [place], [place], [id number] QFT TB2+ AG ASHLEY Normal [facility] Comment on above: Result Comment: LOST AT [facility] Performed By: #### [id number] #### [facility] [address] [place], [place], [id number] US FEMALE PELVIS TRANSVAGon 02-03-2023 [facility] CBC W Auto Differential pane l (Bld)on 01-27-2023 Basophils (Bld) [#/Vol] <0.11 k/uL [facility] Basophils/100 WBC (Bld) 0.3 % [facility] Differential cell count method Nom (Bld) Auto [facility] Eosinophils (Bld) [#/Vol] 0.18 10*3/uL <0.46 k/uL [facility] Eosinophils/100 WBC (Bld) 2.6 % [facility] Erythrocyte distribution width (RBC) [Ratio] 12.6 % 11.5 - 15.0 % [facility] Hematocrit (Bld) [Volume fraction] 41.9 % 36.0 - 46.0 % [facility] Hemoglobin (Bld) [Mass/Vol] 14.0 g/dL 11.5 - 15.5 g/dL [facility] Immature granulocytes (Bld) [#/Vol] <0.10 k/uL [facility] Immature granulocytes/100 WBC (Bld) 0.3 % [facility] Lymphocytes (Bld) [#/Vol] 2.15 10*3/uL 1.00 - 4.00 k/uL [facility] Lymphocytes/100 WBC (Bld) 30.5 % [facility] MCH (RBC) [Entitic mass] 29.2 pg 26.0 - 34.0 pg [facility] MCHC (RBC) [Mass/Vol] 33.4 g/dL 30.5 - 36.0 g/dL [facility] MCV (RBC) [Entitic vol] 87.3 fL 80.0 - 100.0 fL [facility] Monocytes (Bld) [#/Vol] 0.50 10*3/uL <0.87 k/uL [facility] Monocytes/100 WBC (Bld) 7.1 % [facility] Neutrophils (Bld) [#/Vol] 4.18 10*3/uL 1.45 - 7.50 k/uL [facility] Neutrophils/100 WBC (Bld) 59.2 % [facility] Nucleated RBC (Bld) [#/Vol] <0.01 k/uL [facility] Nucleated RBC/100 WBC (Bld) [Ratio] 0.0 /100 WBC [facility] Platelet mean volume (Bld) [Entitic vol] 9.2 fL 9.0 - 12.7 fL [facility] Platelets (Bld) [#/Vol] 247 10*3/uL 150 - 400 k/uL [facility] RBC (Bld) [#/Vol] 4.80 10*6/uL 3.90 - 5.2 0 m/uL [facility] WBC (Bld) [#/Vol] 7.05 10*3/uL 3.70 - 11. 00 k/uL [facility] PROLACTIN Don 01-27-2023 Prolactin [Mass/Vol] 5.8 ng/mL 4.5 - 2 6.8 ng/mL [facility] T4 FREE/FREE THYROXon 2022 Free T4 [Mass/Vol] 1.1 ng/dL 0.9 - 1.7 ng/dL [facility] TSH Don 01-27-2023 TSH Qn 1.210 m[IU]/L 0.270 - 4.200 mIU/L [facility] Culture, urineOrdered By: Krishan Palmer on 10-30-2022 Bacteria identified Cx Nom (U) Proteus mirabilis [facility] Culture, urineOrdered By: Krishan Palmer on 09-12-2022 Bacteria identified Cx Nom (U) Culture exhibits no growth. [facility] Culture, urineOrdered By: Krishan Palmer on 09-10-2022 Bacteria identified Cx Nom (U) Culture exhibits no growth. [facility] Culture, urineOrdered By: Sho Choi on 06-05-2022 Bacteria identified Cx Nom (U) Escherichia coli [facility] Culture, urineOrdered By: Krishan Palmer on 05-04-2022 Bacteria identified Cx Nom (U) Presumptive E. coli [facility] Vital Signs Date Time Vital Sign Value Performing Clinician Declan rodriguez 11-03-2024 11:21-0400 Body mass index (BMI) [Ratio] 21.92 kg/m2 Krystyna Cardona APRN.STUDIO MANAGER Work Phone: [facility] 11-03-2024 11:21-0400 Body temperature 98.1 [degF] Krystyna Cardona APRN.STUDIO MANAGER Work Phone: [facility] 11-03-2024 11:21-0400 Body weight 65.4 kg Krystyna Cardona APRN.STUDIO MANAGER Work Phone: [facility] 11-03-2024 11:21-0400 Diastolic blood pressure 76 mm[Hg] Krystyna Cardona APRN.STUDIO MANAGER Work Phone: [facility] 11-03-2024 11:21-0400 Heart rate 81 /min Krystyna Cardona APRN.STUDIO MANAGER Work Phone: [facility] 11-03-2024 11:21-0400 Respiratory rate 16 /min Krystyna Cardona APRN.STUDIO MANAGER Work Phone: [facility] 11-03-2024 11:21-0400 SaO2% (BldA) [Mass fraction] 98 % Krystyna Cardona APRN.STUDIO MANAGER Work Phone: [facility] 11-03-2024 11:21-0400 Systolic blood pressure 110 mm[Hg] Krystyna Cardona APRN.STUDIO MANAGER Work Phone: [facility] 12-31-2023 17:03-0400 Body mass index (BMI) [Ratio] 22.76 kg/m2 Krystyna Cardona APRN.STUDIO MANAGER Work Phone: [facility] 12-31-2023 17:03-0400 Body temperature 99 [degF] Krystyna Cardona APRN.STUDIO MANAGER Work Phone: [facility] 12-31-2023 17:03-0400 Body weight 67.9 kg Krystyna Cardona APRN.STUDIO MANAGER Work Phone: [facility] 12-31-2023 17:03-0400 Diastolic blood pressure 68 mm[Hg] Krystyna Cardona APRN.STUDIO MANAGER Work Phone: [facility] 12-31-2023 17:03-0400 Heart rate 94 /min Krystyna Cardona APRN.STUDIO MANAGER Work Phone: [facility] 12-31-2023 17:03-0400 Respiratory rate 16 /min Krystyna Cardona APRN.STUDIO MANAGER Work Phone: [facility] 12-31-2023 17:03-0400 SaO2% (BldA) [Mass fraction] 98 % Krystyna Cardona APRN.STUDIO MANAGER Work Phone: [facility] 12-31-2023 17:03-0400 Systolic blood pressure 102 mm[Hg] Krystyna Cardona APRN.STUDIO MANAGER Work Phone: [facility] 01-24-2023 16:15-0400 Body height 172.7 cm Symone Orozco NOISE TESTER.CNM Work Phone: [facility] 01-24-2023 16:15-0400 Body weight 67.95 kg Symone Orozco NOISE TESTER.CNM Work Phone: [facility] 01-24-2023 16:15-0400 Diastolic blood pressure 74 mm[Hg] Symone Orozco NOISE TESTER.CNM Work Phone: [facility] 01-24-2023 16:15-0400 Systolic blood pressure 112 mm[Hg] Symone Orozco NOISE TESTER.CNM Work Phone: [facility] 10-31-2021 13:36-0400 Body height 174 cm Janet Rehman MD Work Phone: [facility] 10-31-2021 13:36-0400 Body weight 68.49 kg Janet Rehman MD Work Phone: [facility] 10-31-2021 13:36-0400 Diastolic blood pressure 66 mm[Hg] Janet Rehman MD Work Phone: [facility] 10-31-2021 13:36-0400 Systolic blood pressure 108 mm[Hg] Janet Rehman MD Work Phone: [facility] Encounters Encounter Date Encounter Type Care Provider Facility Start: 11-04-2024 End: 11-04-2024 Follow-up encounter Jolene PIERCE Work Phone: [facility] Start: 11-03-2024 End: 11-03-2024 Patient encounter procedure Krystyna Cardona APRN.CNP Work Phone: [facility] Comment on above: Urinary frequency (P rimary Dx); Urinary tract infection with hematuria, site unspecified Start: 11-03-2024 End: 11-03-2024 [facility] Facility:[facility] Start: 05-31-2024 End: 05-31-2024 Emergency department patient visit [facility] Facility:[facility] Start: 01-07-2024 End: 01-07-2024 ambulatory [facility] Facility:[facility] Start: 12-31-2023 End: 12-31-2023 [facility] Facility:[facility] Start: 12-31-2023 End: 12-31-2023 Patient encounter procedure Krystyna Cardona APRN.STUDIO MANAGER Work Phone: [facility] Comment on above: Herpes zoster with c omplication (Primary Dx) Start: 12-15-2023 End: 12-15-2023 ambulatory [facility] Facility:[facility] Start: 02-03-2023 End: 02-03-2023 Subsequent hospital visit by physician [facility] Work Phone: Radiology Comment on above: Secondary dysmenorrh ea [N94.5] Start: 01-24-2023 End: 01-24-2023 Patient encounter procedure Symone Orozco APRN.CNM Work Phone: OB/Gynecology Comment on above: Encounter for gyneco logical examination (general) (routine) without abnormal findings (Primary Dx); Secondary dysmenorrhea; Irregular menses Start: 01-24-2023 End: 01-24-2023 Patient encounter status Symone Orozco APRN.CNM Work Phone: [facility] Start: 11-16-2022 End: 11-16-2022 ambulatory [facility] Work Phone: Start: 11-16-2022 End: 11-16-2022 Patient encounter procedure [facility] Work Phone: Start: 10-30-2022 End: 10-30-2022 Patient encounter procedure [facility]-Laboratory, Specimen Work Phone: Start: 09-10-2022 End: 09-10-2022 ambulatory [facility] Work Phone: Start: 09-10-2022 End: 09-10-2022 Patient encounter procedure [facility]-Laboratory, Specimen Start: 06-03-2022 End: 06-03-2022 ambulatory [facility] Work Phone: Start: 06-03-2022 End: 06-03-2022 Patient encounter procedure [facility]-Laboratory, Specimen Start: 05-02-2022 End: 05-02-2022 ambulatory [facility] Work Phone: Start: 05-02-2022 End: 05-02-2022 Patient encounter procedure [facility]-Laboratory, Specimen Start: 02-11-2022 End: 02-11-2022 [facility] Leslee Chappell APRN.STUDIO MANAGER Work Phone: Psychiatry Comment on above: CHRISTINA (generalized anx iety disorder) (Primary Dx) Start: 01-13-2022 Refill Leslee edward NOISE TESTER.STUDIO MANAGER Work Phone: Psychiatry Comment on above: Refill Request Start: 12-10-2021 End: 12-10-2021 [facility] Leslee Chappell NOISE TESTER.STUDIO MANAGER Work Phone: Psychiatry Comment on above: CHRISTINA (generalized anx iety disorder) (Primary Dx) Start: 10-31-2021 End: 10-31-2021 Patient encounter procedure Janet Rehman MD Work Phone: OB/Gynecology Comment on above: Encounter for gyneco logical examination (general) (routine) without abnormal findings (Primary Dx) Start: 10-31-2021 End: 10-31-2021 Patient encounter status Janet Rehman MD Work Phone: OB/Gynecology Start: 10-04-2021 Refill Leslee edward NOISE TESTER.STUDIO MANAGER Work Phone: Psychiatry Comment on above: Refill Request Start: 09-28-2021 End: 09-28-2021 [facility] Leslee Chappell NOISE TESTER.STUDIO MANAGER Work Phone: Psychiatry Comment on above: CHRISTINA (generalized anx iety disorder) (Primary Dx) Procedures Date Procedure Procedure Detail Performing Clinician Start: 11-03-2024 Urnls dip stick/tabl et rgnt auto w/o microscopy Krystyna Cardona NOISE TESTER.STUDIO MANAGER Work Phone: Start: 02-03-2023 Us transvaginal Symone Orozco NOISE TESTER.CNM Work Phone: Start: 11-16-2022 US urinary tract Start: 10-30-2022 Urine culture Start: 09-10-2022 Urine culture Start: 12-08-2021 Adult depression scr eening assessment Leslee Chappell APRN.STUDIO MANAGER Work Phone: Start: 09-27-2021 Adult depression scr eening assessment Leslee Chappell APRN.STUDIO MANAGER Work Phone: Urine culture Urine culture Urine culture Plan of Treatment Date Care Activity Detail Author Start: 06-22-2030 Urine microalbumin profile [facility] Start: 11-06-2025 HPV TESTING HPV TESTING [facility] Start: 11-06-2025 PAP TESTING PAP TESTING [facility] Start: 11-06-2025 Screening for malign ant neoplasm of cervix Cervical Cancer Screening [facility] Start: 12-20-2024 Influenza vaccination Influenza Vacc ine (#1) [facility] Start: 12-21-2023 Covid-19 Vaccine ( season) Covid-19 Vaccine () [facility] Start: 12-21-2023 Covid-19 Vaccine ( season) Covid-19 Vaccine ( season) [facility] Start: 12-21-2023 Influenza vaccination Influenza Vacc ine (#1) [facility] Start: 12-20-2022 Influenza vaccination Influenza Vacc ine (#1) [facility] Start: 12-08-2022 Adult depression screening assessment DEPRESSION SCREENING [facility] Start: 09-27-2022 Adult depression screening assessment DEPRESSION SCREENING [facility] Start: 04-21-2022 [facility] Start: 12-20-2021 Influenza vaccination [facility] Start: 04-21-2021 DEPRESSION ASSESSMENT DEPRESSION ASS ESSMENT [facility] Start: 2008 Anxiety Screening Anxiety Screening [facility] Start: 2008 Depression Screening Depression Scre ening [facility] Start: 1995 COVID-19 VACCINE (#1) COVID-19 VACCI NE (#1) [facility] Start: 1990 COVID-19 VACCINE (#1) COVID-19 VACCI NE (#1) [facility] Bacteria identified in Urine by Culture BACTERIAL CULTURE, URINE Microbiology Routine Urinary frequency 11/03/2024 11:55 AM EDT [facility] Work Phone: End: 02-25-2024 Us transvaginal US FEMALE PELVIS TRANSVAG Radiology Routine Secondary dysmenorrhea Irregular menses 1 Occurrences starting 01/24/2023 until 02/25/2024 [facility] Work Phone: Comment on above: 1 Occurrences starti ng 01/24/2023 until 02/25/2024 [facility] Immunizations Immunization Date Immunization Notes Care Provider Fa ander 06-22-2020 tetanus toxoid, redu wilfrid diphtheria toxoid, and acellular pertussis vaccine, adsorbed Leslee Rajguru NOISE TESTER.[facility] Work Phone: [facility] Work Phone: 06-02-2017 tetanus toxoid, redu wilfrid diphtheria toxoid, and acellular pertussis vaccine, adsorbed Leslee Rajguru NOISE TESTER.STUDIO MANAGER Work Phone: [facility] Work Phone: 01-25-2015 influenza, injectabl e, quadrivalent, contains preservative Leslee Chappell NOISE TESTER.STUDIO MANAGER Work Phone: [facility] Work Phone: 01-25-2015 influenza virus vaccine, unspecified formulation Symone Ernesto NOISE TESTER.CNM Work Phone: [facility] 11-29-2014 tetanus toxoid, redu wilfrid diphtheria toxoid, and acellular pertussis vaccine, adsorbed Leslee Chappell NOISE TESTER.STUDIO MANAGER Work Phone: [facility] 07-01-2003 hepatitis B vaccine, pediatric or pediatric/adolescent dosage Janet Rehman MD Work Phone: [facility] Work Phone: 12-13-2002 hepatitis B vaccine, pediatric or pediatric/adolescent dosage Janet Rehman MD Work Phone: [facility] Work Phone: 11-03-2002 hepatitis B vaccine, pediatric or pediatric/adolescent dosage Janet Rehman MD Work Phone: [facility] Work Phone: 11-03-2002 measles, mumps and rubella virus vaccine Janet Rehman MD Work Phone: [facility] Work Phone: Payers Date Payer Category Payer Self-pay [id number] 2023 Private Health Insurance [id number] 2018 Private Health Insurance [employer]ET[employer] A ETNA CHOICE POS II [id number] 2018-Present [phone] [address] [place] [address] POS [id number] 2018 Private Health Insurance [id number] 2014 Unknown [id number] Private Health Insurance [employer]ET[employer] [id number] Unknown [id number] Unknown [id number] Unknown [id number] Social History Date Type Detail Facility Start: 07-15-2014 End: 01-24-2023 Tobacco smoking status NHIS Never smoked tobacco [facility] Start: 07-15-2014 End: 01-24-2023 Tobacco use and exposure Smokeless tobacco non-user [facility] Start: 03-27-2021 End: 12-31-2023 Alcohol intake Ex-drinker (finding) [facility] Start: 12-02-2016 History SDOH Alcohol Comment occasionally, not while [facility] Start: 01-27-2020 History SDOH Financial 5 [facility] Start: 01-27-2020 History SDOH Food Worry 1 [facility] Start: 01-27-2020 History SDOH Transpo rt Med 2 [facility] Start: 01-27-2020 Education 13 [facility] Start: 1990 Sex Assigned At Female [facility] Start: 10-21-2021 End: 10-31-2021 Exposure to SARS-CoV-2 (event) Not sure [facility] Start: 09-22-2020 End: 09-22-2020 Tobacco smoking status NHIS Unknown if ever smoked [facility] Start: 07-11-2017 None [facility] Start: 01-27-2020 End: 01-24-2023 History of Social function [facility] Work Phone: Start: 01-27-2020 End: 01-24-2023 Tobacco use panel [facility] Work Phone: How hard is it for y ou to pay for the very basics like food, housing, medical care, and heating Not hard at all [facility] Work Phone: (I/We) worried loc er (my/our) food would run out before (I/we) got money to buy more. Never true [facility] Work Phone: Start: 02-04-2020 Gender identity Identifies as female gender (finding) [facility] Start: 02-04-2020 Sexual orientation Heterosexual (fin ding) [facility] Functional Status Date Assessment Result Facility 10-24-2014 Are you deaf, or do you have serious difficulty hearing No 10/24/2014 10:09 AM Pam Evans, NAYA No [facility] 10-24-2014 Are you blind, or do you have serious difficulty seeing, even when wearing glasses No 10/24/2014 10:09 AM Pam Evans RN No [facility] 10-24-2014 Do you have serious difficulty walking or climbing stairs No 10/24/2014 10:09 AM Pam Evans, NAYA No [facility] 10-24-2014 Do you have difficul ty dressing or bathing No 10/24/2014 10:09 AM Pam Evans, NAYA No [facility] 10-24-2014 Because of a physica l, mental, or emotional condition, do you have difficulty doing errands alone such as visiting a physician's office or shopping No 10/24/2014 10:09 AM Pam Evans RN [facility] Mental Status Date Assessment Result Facility 10-24-2014 Because of a physica l, mental, or emotional condition, do you have serious difficulty concentrating, remembering, or making decisions No 10/24/2014 10:09 AM Pam Evans RN No [facility] Clinical Notes 05-26-2020 to 11-04-2024 Telephone Encounter - Debra Qiu LPN - 11/04/2024 8:01 PM EDTTelephone Encounter - Debra Qiu LPN - 11/04/2024 8:01 PM EDTTelephone Encounter - Jolene Trujillo PA - 11/04/2024 12:41 PM EDT Note Date & Type Note Facility 11-04-2024 Telephone encounter Note [employer] message sent to patients MyChart d/t her bring active on 11/04/24 2:30pm Debra Qiu LPN [facility] 11-04-2024 Miscellaneous Notes [employer] message sent to patients MyChart d/t her bring active on 11/04/24 2:30pm Debra Qiu LPN Please contact patient let her know urine culture reveals no UTI. If symptoms are improving on antibiotic, she may continue it. Otherwise, discontinue antibiotic and follow-up with PCP for persistent symptoms documented in this encounter [facility] 11-04-2024 Telephone encounter Note Please contact patient let her know urine culture reveals no UTI. If symptoms are improving on antibiotic, she may continue it. Otherwise, discontinue antibiotic and follow-up with PCP for persistent symptoms [facility] Work Phone: 11-03-2024 Note HNO ID: [id number] Author: KRYSTYNA CARDONA APRN.STUDIO MANAGER Service: ? Author Type: Nurse Practitioner Type: Progress Notes Filed: 11/03/2024 11:38 Note Text: URGENT CARE INDIRA Funmi Quiana Carmen is a 34 year old female. Patient presents with: Urinary Frequency: Frequency, burning and urgency x 1 week HPI Recurrent UTIs: - Dysuria and urinary frequency, similar to previous UTI episodes. - Recent urology visit last month; urologist is currently unavailable. - Took a few doses of low-dose Keflex at home. - History of recurrent UTIs, with 6 episodes in a short period previously. - Was on a prophylactic low-dose Keflex daily for several months. - Concerns about developing a yeast infection after taking a regular dose of Keflex. - Takes cranberry supplements daily. - Denies CVA tenderness or abdominal pain. Review of Systems Gastrointestinal: (-) abdominal pain Genitourinary: (+) dysuria, (+) urinary frequency, (-) flank pain Objective BP 110/76 Pulse 81 Temp 36.7 ?C (98.1 ?F) (Tympanic) Resp 16 Wt 65.4 kg (144 lb 2.9 oz) LMP 01/20/2023 (Exact Date) SpO2 98% BMI 21.92 kg/m? Physical Exam General: No acute distress. CV: Heart sounds normal. Resp: Lung sounds normal. Back: No costovertebral angle tenderness. Abd: No tenderness. { 1. Urinary frequency (R35.0) 2. Urinary tract infection with hematuria, site unspecified (N39.0) - Urinalysis shows hematuria, proteinuria, and pyuria; not definitively positive but consistent with UTI. - Initiated Keflex at standard dosage for 5 days. - Sent urine sample for culture, though results may be compromised due to prior Keflex use. - Advised patient to monitor for signs of worsening infection, including fever, chills, nausea, vomiting, or increased pain, and to seek emergency care if these occur. - Discussed potential for yeast infection secondary to antibiotic use; Diflucan not recommended due to interaction with Prozac. - Recommended use of genitourinary-specific probiotics. - Patient to follow up with urology if symptoms persist or worsen. and Recording using [employer] software for draft documentation of the visit was discussed with the patient/authorized architectural representative; all questions welcomed and answered. Patient/authorized architectural representative agreed to proceed MDM Procedures [facility] 11-03-2024 History of Presen t illness Narrative [facility]RG[facility] CARE INDIRA Subjective Quiana Carmen is a 34 year old female. Patient presents with: Urinary Frequency: Frequency, burning and urgency x 1 week HPI Recurrent UTIs: - Dysuria and urinary frequency, similar to previous UTI episodes. - Recent urology visit last month; urologist is currently unavailable. - Took a few doses of low-dose Keflex at home. - History of recurrent UTIs, with 6 episodes in a short period previously. - Was on a prophylactic low-dose Keflex daily for several months. - Concerns about developing a yeast infection after taking a regular dose of Keflex. - Takes cranberry supplements daily. - Denies CVA tenderness or abdominal pain. Review of Systems Gastrointestinal: (-) abdominal pain Genitourinary: (+) dysuria, (+) urinary frequency, (-) flank pain Objective BP 110/76 Pulse 81 Temp 36.7 C (98.1 F) (Tympanic) Resp 16 Wt 65.4 kg (144 lb 2.9 oz) LMP 01/20/2023 (Exact Date) SpO2 98% BMI 21.92 kg/m Physical Exam General: No acute distress. CV: Heart sounds normal. Resp: Lung sounds normal. Back: No costovertebral angle tenderness. Abd: No tenderness. { 1. Urinary frequency (R35.0) 2. Urinary tract infection with hematuria, site unspecified (N39.0) - Urinalysis shows hematuria, proteinuria, and pyuria; not definitively positive but consistent with UTI. - Initiated Keflex at standard dosage for 5 days. - Sent urine sample for culture, though results may be compromised due to prior Keflex use. - Advised patient to monitor for signs of worsening infection, including fever, chills, nausea, vomiting, or increased pain, and to seek emergency care if these occur. - Discussed potential for yeast infection secondary to antibiotic use; Diflucan not recommended due to interaction with Prozac. - Recommended use of genitourinary-specific probiotics. - Patient to follow up with urology if symptoms persist or worsen. and Recording using [employer] software for draft documentation of the visit was discussed with the patient/authorized architectural representative; all questions welcomed and answered. Patient/authorized architectural representative agreed to proceed MDM Procedures documented in this encounter [facility] 12-31-2023 Note HNO ID: [id number] Author: KRYSTYNA CARDONA APRN.MAGI Service: ? Author Type: Nurse Practitioner Type: Progress Notes Filed: 12/31/2023 17:09 Note Text: Subjective Patient came in with complaints of burning painful rash on the right side. Patient says it started Friday. Patient denies any other symptoms with it. The history is provided by the patient. No medical language specialist was used. Rash Review of Systems Constitutional: Negative. Skin: Positive for rash. Objective Physical Exam Constitutional: Appearance: Normal appearance. Pulmonary: Effort: Pulmonary effort is normal. Chest: Comments: Vesicular rash located in the area marked above consistent with shingles. Neurological: Mental Status: She is alert. No past medical history on file. PAST SURGICAL HISTORY No date: PAST SURGICAL HISTORY OF Comment: wisdom teeth ALLERGIES Patient has no known allergies. MEDICATIONS clobetasol (TEMOVATE) 0.05 % cream PLEASE SEE ATTACHED FOR DETAILED DIRECTIONS ketoconazole (NIZORAL) 2 % shampoo WASH THE SCALP EVERY OTHER WASH, LATHERING AND LETTING SIT FOR 3-5 MINUTES BEFORE RINSING. sertraline (ZOLOFT) 100 mg tablet Take 1.5 tablets by mouth once daily. risankizumab-rzaa (SKYRIZI SUBCUTANEOUS) Inject subcutaneously. valACYclovir (VALTREX) 1 gram tablet Take 1 tablet by mouth three times a day for 7 days. cephALEXin (KEFLEX) 250 mg capsule Take 250 mg by mouth daily at bedtime. (Patient not taking: Reported on 12/31/2023) FAMILY HISTORY Problem Relation Age of Onset No Known Problems Mother Heart Father Heart Attack Father No Known Problems Brother Psychiatry Brother by suicide No Known Problems Maternal Grandmother No Known Problems Maternal Grandfather Heart Paternal Grandmother No Known Problems Son No Known Problems Son Social History Tobacco Use Smoking status: Never Smokeless tobacco: Never Vaping Use Vaping status: Never Used Substance Use Topics Alcohol use: Not Currently Drug use: No ASSESSMENT/PLAN: 1. Herpes zoster with complication - ICD9: 053.8, ICD10: B02.8 - VALACYCLOVIR 1 GRAM TABLET Patient was educated about proper use of medication and supportive therapies. Patient will follow-up with signs and symptoms seem to be any worse not better. Patient was okay with this care plan. Krystyna Cardona APRN.[facility] 12-31-2023 History of Presen t illness Narrative Images from the original note were not included. Subjective Patient came in with complaints of burning painful rash on the right side. Patient says it started Friday. Patient denies any other symptoms with it. The history is provided by the patient. No medical language specialist was used. Rash Review of Systems Constitutional: Negative. Skin: Positive for rash. Objective Physical Exam Constitutional: Appearance: Normal appearance. Pulmonary: Effort: Pulmonary effort is normal. Chest: Comments: Vesicular rash located in the area marked above consistent with shingles. Neurological: Mental Status: She is alert. No past medical history on file. PAST SURGICAL HISTORY No date: PAST SURGICAL HISTORY OF Comment: wisdom teeth ALLERGIES Patient has no known allergies. MEDICATIONS clobetasol (TEMOVATE) 0.05 % cream PLEASE SEE ATTACHED FOR DETAILED DIRECTIONS ketoconazole (NIZORAL) 2 % shampoo WASH THE SCALP EVERY OTHER WASH, LATHERING AND LETTING SIT FOR 3-5 MINUTES BEFORE RINSING. sertraline (ZOLOFT) 100 mg tablet Take 1.5 tablets by mouth once daily. risankizumab-rzaa (SKYRIZI SUBCUTANEOUS) Inject subcutaneously. valACYclovir (VALTREX) 1 gram tablet Take 1 tablet by mouth three times a day for 7 days. cephALEXin (KEFLEX) 250 mg capsule Take 250 mg by mouth daily at bedtime. (Patient not taking: Reported on 12/31/2023) FAMILY HISTORY Problem Relation Age of Onset No Known Problems Mother Heart Father Heart Attack Father No Known Problems Brother Psychiatry Brother by suicide No Known Problems Maternal Grandmother No Known Problems Maternal Grandfather Heart Paternal Grandmother No Known Problems Son No Known Problems Son Social History Tobacco Use Smoking status: Never Smokeless tobacco: Never Vaping Use Vaping status: Never Used Substance Use Topics Alcohol use: Not Currently Drug use: No ASSESSMENT/PLAN: 1. Herpes zoster with complication - ICD9: 053.8, ICD10: B02.8 - VALACYCLOVIR 1 GRAM TABLET Patient was educated about proper use of medication and supportive therapies. Patient will follow-up with signs and symptoms seem to be any worse not better. Patient was okay with this care plan. Krystyna Cardona APRN.CNP documented in this encounter [facility] 02-03-2023 History of Presen t illness Narrative Radiology Service Progress Note PATIENT NAME: Quiana Carmen DATE OF SERVICE: February 03, 2023 TIME: 9:43 AM PATIENT IDENTITY VERIFICATION COMPLETED USING TWO (2) IDENTIFIERS: Name and Date of confirmed by patient verbally. FALL SCREENING: Has the patient had 2 falls in the last year or 1 fall with injury or currently using an Ambulatory Assistive Device (Walker, Cane, Wheelchair, Crutches, etc.)? No PATIENT GENDER DATA: Female. status: : No status: NO. PATIENT RELEVANT IMPLANT DATA REVIEWED: Not Applicable RADIOLOGY DEPARTMENT: Ultrasound PERIPHERAL IV DATA: Not applicable SIGNED BY: Symone Coombs RDMS RVT February 03, 2023 9:43 AM documented in this encounter [facility] 01-24-2023 History of Presen t illness Narrative Quiana is a 32 year old who presents for an annual gynecologic exam without complaints. Menses: cycles every 21-35 days and 2-9 days of flow. States menses are painful first few days but does not take anything. Heavy bleeding, changing pad every 2 hours. 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 No pertinent past medical history. PAST SURGICAL HISTORY Procedure Laterality Date PAST SURGICAL HISTORY OF wisdom teeth FAMILY HISTORY Problem Relation Age of Onset No Known Problems Mother Heart Father Heart Attack Father No Known Problems Brother Psychiatry Brother by suicide No Known Problems Maternal Grandmother No Known Problems Maternal Grandfather Heart Paternal Grandmother No Known Problems Son No Known Problems Son SOCIAL HISTORY Social History Tobacco Use Smoking status: Never Smokeless tobacco: Never Vaping Use Vaping Use: Never used Substance Use Topics Alcohol use: Not Currently Drug use: No REVIEW OF SYSTEMS Abdomen: No abdominal pain, nausea, vomiting, diarrhea, or constipation. No bloating, early satiety, indigestion, or increased flatulence. Bladder: No dysuria, gross hematuria, urinary frequency, urinary urgency, or incontinence. Breast: No breast lumps, nipple d/c, overlying skin changes, redness or skin retraction. Allergies and current medication updated:Yes EXAM: BP 112/74 Ht 5' 8" (1.73m) Wt 149 lb 12.8 oz (67.9kg) LMP 01/20/2023 BMI 22.78 kg/(m^2). GENERAL: pleasant, female in no apparent distress HEENT: Normocephalic, atraumatic, mucus membranes moist, and no lesions NECK: Supple, full range of motion, no adenopathy, and thyroid normal DERMATOLOGY: Normal, without lesions, non-icteric, and non-hirsute BREAST: soft, non-tender, symmetric, no dominant mass, normal nipple-areolar complex, no lymphadenopathy, and no nipple discharge CHEST: Normal inspiratory effort ABDOMEN: soft, non-tender, and no masses PELVIC: external genitalia normal, normal Bartholin's glands, urethra, Eulonia's glands, no vulvar lesions, no cervical lesions, good vaginal support, physiologic discharge present, normal appearing perineal body and perianal region BIMANUAL: uterus normal size, shape and consistency, no adnexal masses, and non-tender RECTOVAGINAL: deferred. NEURO: alert and oriented x3,exam grossly non-focal EXTREMITIES: normal ASSESSMENT/PLAN: 1. Encounter for gynecological examination (general) (routine) without abnormal findings - ICD9: V72.31, ICD10: Z01.419 (primary diagnosis) - Completed pelvic and breast exam - Encouraged monthly BSE - Follow up for annual exam in one year. 2. Secondary dysmenorrhea - ICD9: 625.3, ICD10: N94.5 - CBC + DIFF - TSH BLD - T4 FREE/FREE THYROX - PROLACTIN BLD - US FEMALE PELVIS TRANSVAG 3. Irregular menses - ICD9: 626.4, ICD10: N92.6 - CBC + DIFF - TSH BLD - T4 FREE/FREE THYROX - PROLACTIN BLD - US FEMALE PELVIS TRANSVAG 1) Health maintenance: Pap/HPV up to date. Mammogram starting age 40. Nutrition, exercise and routine health maintenance exams reviewed. Calcium/Vitamin D supplementation information provided. Lipids/glucose: followed by PCP Vitamin D: followed by PCP 2) Contraception: vasectomy. Contraceptive options reviewed and information provided. 3) STD screening: Declined STD check. 4) Follow up one year or sooner as needed Symone Orozco APRN.CNM documented in this encounter [facility] 02-11-2022 History of Presen t illness Narrative Images from the original note were not included. PSYC FOLLOW UP - PSYCHIATRIC PROGRESS NOTE DIAGNOSIS: Generalized Anxiety Disorder None GAF: -80-71 If symptoms are present, they are transient and expectable reactions to psychosocial stressors TREATMENT PLAN: Continue Zoloft at the same dose. Transition care of Zoloft to her new PCP. Continue individual psychotherapy. Follow up as needed. CC: Follow up regarding anxiety. With the patient consent, visit was performed virtually. HPI: Quiana Carmen is a 31 year old Female with a history of CHRISTINA presenting today for follow-up. Date of last visit: 12/10/2021 Plan from last visit: Patient requested to reduce the Zoloft dose to 150 mg as her anxiety symptoms have improved since her sleep has improved. Continue individual psychotherapy and incorporating self-care. Follow up in 2 to 3 months. Today Quiana shares that after a bit she has tolerated the decrease of Zoloft to 150 mg. Does not wish to decrease the dose further. She had a hard time managing her anxiety and sleep difficulties. Denies any side effects from the medication. Her sleep has improved. She has given up caffeine and it has been very helpful. Her baby is sleeping through the night. Appetite is stable. She has spoken to her new primary care provider about taking over Zoloft. She has not needed to see her therapist as often. She went on vacation with her to [place]. She has been helping a friend who recently had a baby. She has been working on her mom guilt. Interval Progress: Improved Risks and benefits of the medication, including any black box warnings, were discussed with the patient. Social History: See HPI PATIENT DATA: Generalized Anxiety Disorder Scale (CHRISTINA-7) CHRISTINA - 7 SCORES 09/27/2021 12/08/2021 02/11/2022 CHRISTINA-7 Score 4 4 5 (0-4) minimal anxiety, (5-9) mild anxiety, (10-14) moderate anxiety, (15-21) severe anxiety Patient Health Questionnaire (PHQ-9) PHQ-9 09/27/2021 12/08/2021 02/11/2022 Score 4 2 3 (0-4) minimal depression, (5-9) mild depression, (10-14) moderate depression, (15-19) moderately severe depression, (20-27) severe depression ROS: General: Negative for fever, malaise, unintentional weight loss HEENT: Negative for recent changes in vision or hearing, no nasal drainage Respiratory: Negative for cough, wheezing or SOB Cardiovascular: Negative for chest pain GI: Negative for nausea, vomiting, change in bowel habits MUSCULOSKELETAL: Negative for acute back or joint pain SKIN: Negative for rash NEURO: Negative for headaches, seizures, focal neurological deficits All other systems negative. VITAL SIGNS: BP Temp Pulse Resp SpO2 MENTAL STATUS EXAMINATION: Appearance: Appropriately groomed, appears stated age Behavior: Appropriately engaged Psychomotor: No psychomotor agitation Cognition Level of Consciousness: Awake and alert. No fluctuation in wakefulness. Orientation: Grossly oriented Memory: Intact Attention/Concentration: Good Fund of Knowledge: Able to demonstrate an awareness of current events. Mood: Euthymic Affect: Congruent to mood Speech/Language: Appropriate tone, prosody, poncho, phonetics, and syntax Thought Form: Goal-directed. No loosening of associations. Thought Content: No delusions noted or endorsed. Perceptual Disturbances: Did not appear to respond to auditory stimuli. Safety: Suicidal Ideations: No suicidal ideation, intent or plan. Homicidal Ideations: No homicidal ideation, intent or plan. Insight: Appropriate Judgment: Appropriate I spent a total of 26 minutes on the date of the service which included preparing to see the patient, [id number] patient care, completing clinical documentation, and counseling and educating the patient/family/caregiver, ordering medications/labs. Leslee Chappell APRN.CNP February 11, 2022 11:03 AM This note was partially generated using Nextnav voice recognition system. Note was reviewed for accuracy. There may be minor misspellings or grammar miscues with [employer] voice recognition. documented in this encounter [facility] 01-14-2022 Miscellaneous Notes Patient's request for medication has been refused. See reason and notify patient. Requested Prescriptions Refused Prescriptions Disp Refills sertraline (ZOLOFT) 100 mg tablet [Pharmacy Med Name: SERTRALINE HCL 100 MG TABLET] 180 tablet Sig: TAKE 2 TABLETS BY MOUTH EVERY DAY Refused By: BILLY OZUNA Reason for Refusal: Patient has requested refill too soon documented in this encounter [facility] 12-10-2021 History of Presen t illness Narrative Images from the original note were not included. PSYC FOLLOW UP - PSYCHIATRIC PROGRESS NOTE DIAGNOSIS: Generalized Anxiety Disorder None GAF: -90-81 Absent or minimal symptoms, good functioning in all areas, interested and involved in a wide range of activities, no more than everyday problems. TREATMENT PLAN: Patient requested to reduce the Zoloft dose to 150 mg as her anxiety symptoms have improved since her sleep has improved. Continue individual psychotherapy and incorporating self-care. Follow up in 2 to 3 months. Medication Update: Zoloft 100 mg - take 1 and half tablet once daily. The effects and side effects of Zoloft were reviewed with the patient in detail. She is in agreement with the treatment plan and aware to reach out with any questions, concerns, or worsening of symptoms prior to the next appointment. CC: Follow up regarding anxiety. With the patient consent, visit was performed virtually. HPI: Quiana Carmen is a 31 year old Female with a history of CHRISTINA presenting today for follow-up. Date of last visit: 09/28/2021 Plan from last visit: Increase Zoloft to address her anxiety and intrusive thoughts. Discussed the importance of practicing reframing negative thoughts related to the guilt she feels when she engages in self care. Encouraged the patient to engage in self-care and coping skills. Continue individual psychotherapy. Follow-up in 2 to 3 months. Today Quiana shares that things have been really good. She stopped nursing a month ago. Her baby is sleeping through the night so she is able to get more sleep. Her mood has been better with the increase in Zoloft. Denies any side effect from it. She stopped taking the birthcontrol 2 months ago as her got a vasectomy. She has been able to go out a few time with her . Did get a massage as a form of self-harm . She has been able to reduce counseling to every 3 weeks. She is okay with this change. Interval Progress: Improved Risks and benefits of the medication, including any black box warnings, were discussed with the patient. Social History: See HPI PATIENT DATA: Generalized Anxiety Disorder Scale (CHRISTINA-7) CHRISTINA - 7 SCORES 06/25/2021 09/27/2021 12/08/2021 CHRISTINA-7 Score 4 4 4 (0-4) minimal anxiety, (5-9) mild anxiety, (10-14) moderate anxiety, (15-21) severe anxiety Patient Health Questionnaire (PHQ-9) PHQ-9 06/25/2021 09/27/2021 12/08/2021 Score 3 4 2 (0-4) minimal depression, (5-9) mild depression, (10-14) moderate depression, (15-19) moderately severe depression, (20-27) severe depression ROS: General: Negative for fever, malaise, unintentional weight loss HEENT: Negative for recent changes in vision or hearing, no nasal drainage Respiratory: Negative for cough, wheezing or SOB Cardiovascular: Negative for chest pain GI: Negative for nausea, vomiting, change in bowel habits MUSCULOSKELETAL: Negative for acute back or joint pain SKIN: Negative for rash NEURO: Negative for headaches, seizures, focal neurological deficits All other systems negative. VITAL SIGNS: BP Temp Pulse Resp SpO2 MENTAL STATUS EXAMINATION: Appearance: Appropriately groomed, appears stated age Behavior: Appropriately engaged Psychomotor: No psychomotor agitation Cognition Level of Consciousness: Awake and alert. No fluctuation in wakefulness. Orientation: Grossly oriented Memory: Intact Attention/Concentration: Good Fund of Knowledge: Able to demonstrate an awareness of current events. Mood: Euthymic Affect: Congruent to mood Speech/Language: Appropriate tone, prosody, poncho, phonetics, and syntax Thought Form: Goal-directed. No loosening of associations. Thought Content: No delusions noted or endorsed. Perceptual Disturbances: Did not appear to respond to auditory stimuli. Safety: Suicidal Ideations: No suicidal ideation, intent or plan. Homicidal Ideations: No homicidal ideation, intent or plan. Insight: Appropriate Judgment: Appropriate I spent a total of 28 minutes on the date of the service which included preparing to see the patient, [id number] patient care, completing clinical documentation, and counseling and educating the patient/family/caregiver, ordering medications/labs. Leslee Chappell APRN.CNP December 10, 2021 4:08 PM This note was partially generated using Nextnav voice recognition system. Note was reviewed for accuracy. There may be minor misspellings or grammar miscues with Dragon voice recognition. documented in this encounter [facility] 10-31-2021 History of Presen t illness Narrative Quiana is a 31 year old who presents for an annual gynecologic exam without complaints. Menses: just had first one and was normal. 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 No pertinent past medical history. PAST SURGICAL HISTORY Procedure Laterality Date PAST SURGICAL HISTORY OF wisdom teeth FAMILY HISTORY Problem Relation Age of Onset No Known Problems Mother Heart Father Heart Attack Father No Known Problems Brother Psychiatry Brother by suicide No Known Problems Maternal Grandmother No Known Problems Maternal Grandfather Heart Paternal Grandmother No Known Problems Son No Known Problems Son SOCIAL HISTORY Social History Tobacco Use Smoking status: Never Smoker Smokeless tobacco: Never Used Vaping Use Vaping Use: Never used Substance Use Topics Alcohol use: Not Currently Comment: occasionally, not while Drug use: No REVIEW OF SYSTEMS Abdomen: No abdominal pain, nausea, vomiting, diarrhea, or constipation. No bloating, early satiety, indigestion, or increased flatulence. Bladder: No dysuria, gross hematuria, urinary frequency, urinary urgency, or incontinence. Breast: No breast lumps, nipple d/c, overlying skin changes, redness or skin retraction. Allergies and current medication updated:Yes EXAM: BP 108/66 Ht 5' 8.5" (1.74m) Wt 151 lb (68.5kg) LMP 10/19/2021 BMI 22.62 kg/(m^2). GENERAL: pleasant, female in no apparent distress HEENT: Normocephalic, atraumatic, mucus membranes moist and no lesions NECK: Supple, full range of motion, no adenopathy and thyroid normal DERMATOLOGY: Normal, without lesions, non-icteric and non-hirsute BREAST: soft, non-tender, symmetric, no dominant mass, normal nipple-areolar complex, no lymphadenopathy and no nipple discharge CHEST: Normal inspiratory effort ABDOMEN: soft, non-tender and no masses PELVIC: external genitalia normal, normal Bartholin's glands, urethra, Eulonia's glands, no vulvar lesions, no cervical lesions, good vaginal support, physiologic discharge present, normal appearing perineal body and perianal region BIMANUAL: uterus normal size, shape and consistency, no adnexal masses and non-tender RECTOVAGINAL: deferred. NEURO: alert and oriented x3,exam grossly non-focal EXTREMITIES: normal ASSESSMENT/PLAN: 1) Health maintenance: Pap/HPV up to date. Mammogram starting age 40. 2) Contraception: vasectomy. Contraceptive options reviewed and information provided. 3) STD screening: Declined STD check. 4) Follow up one year or sooner as needed Janet Rehman MD documented in this encounter [facility] 10-04-2021 Miscellaneous Notes Request denied. 90 day supply sent on 09/28/21. documented in this encounter [facility] 09-28-2021 Instructions Leslee Chappell APRN.STUDIO MANAGER - 09/28/2021 10:31 AM EDT Dex Araya, It was good to talk with you today. Below is a summary of the plan that we discussed during your appointment for reference. Of course, if you have any questions or concerns do not hesitate to reach out to me via a message or call. Leslee Lucio APRN.CNP PLAN AND FOLLOW UP: YOU SHOULD SEEK IMMEDIATE MEDICAL ATTENTION AT THE NEAREST EMERGENCY DEPARTMENT OR BY CALLING 911, IF ANY OF THE FOLLOWING OCCURS: - New or worsening thoughts of harming yourself (suicidal thoughts) or others (homicidal thoughts) - Not feeling safe at home or worrying about your ability to remain safe at home If you are having thoughts of harming yourself or others, then you can: - Call the National Suicide Hotline at 6-796-UCJXPFJ ( ) or 0-996-252-TALK (2557) - Text 2JOPE to 003766 Medication Update: 1. Zoloft 100 mg take 2 tablets once daily Next appointment: --Schedule in 2 to 3 months or sooner if needed -- You may call the department appointment line at [phone] to schedule your appointment. -- Please call my nurse Taylor at [phone] or send me a message in [employer] with any questions or concerns between appointments. documented in this encounter [facility] 09-28-2021 History of Presen t illness Narrative Images from the original note were not included. PSYC FOLLOW UP - PSYCHIATRIC PROGRESS NOTE DIAGNOSIS: 1. Generalized anxiety disorder 2. None GAF: -70-61 Some mild symptoms or some difficulty in social, occupational, or school functioning, but generally functioning pretty well. TREATMENT PLAN: 1. Increase Zoloft to address her anxiety and intrusive thoughts. 2. Discussed the importance of practicing reframing negative thoughts related to the guilt she feels when she engages in self care. 3. Encouraged the patient to engage in self-care and coping skills. 4. Continue individual psychotherapy. 5. Follow-up in 2 to 3 months. Medication Update: 1. Zoloft 100 mg take 2 tablets once daily The effects and side effects of Zoloft were reviewed in detail with the patient. She is in agreement with the treatment plan. She is aware to reach out with any questions, concerns, or worsening of symptoms prior to the next appointment. CC: Follow-up regarding anxiety With the patient consent, visit was performed virtually. HPI: Quiana Carmen is a 31 year old Female with a history of CHRISTINA presenting today for follow-up. Date of last visit: 06/27/2021 Plan from last visit: 1. Continue Zoloft at the same dose. 2. Continue to engage in individual psychotherapy. 3. Follow-up in 3 months Today Quiana shares that she is doing well. She has had stress related to dealing with a lot of illnesses in the house. Verbalizes that they are all doing well now. Her was a good source of support. Her baby turned 1 and she is planning on weaning him off breast feeding. She has not gotten good sleep lately. She has been struggling with more intrusive thoughts and her anxiety is high. She has been getting broken sleep around 6 hours. Her baby is not sleeping through the night and he wakes up about 2 times. She has not been able to engage in therapy due to her busy schedule. She has been going into the office for work 2 times a week. She has been consistent in taking her Zoloft. Denies any side effects besides a lower libido. Denies any issues with experiencing an orgasm. Denies any concerns with her appetite. She does try to incorporate self-care. She did go to a [place] and went to get a massage with a friend. Does struggle with feelings of guilt and intrusive thoughts of guilt when she engages in such things. Interval Progress: Slightly worse Risks and benefits of the medication, including any black box warnings, were discussed with the patient. Social History: See HPI PATIENT DATA: Generalized Anxiety Disorder Scale (CHRISTINA-7) CHRISTINA - 7 SCORES 06/25/2021 06/25/2021 09/27/2021 CHRISTINA-7 Score 4 4 4 (0-4) minimal anxiety, (5-9) mild anxiety, (10-14) moderate anxiety, (15-21) severe anxiety Patient Health Questionnaire (PHQ-9) PHQ-9 06/25/2021 06/25/2021 09/27/2021 Score 3 3 4 (0-4) minimal depression, (5-9) mild depression, (10-14) moderate depression, (15-19) moderately severe depression, (20-27) severe depression ROS: General: Negative for fever, malaise, unintentional weight loss HEENT: Negative for recent changes in vision or hearing, no nasal drainage Respiratory: Negative for cough, wheezing or SOB Cardiovascular: Negative for chest pain GI: Negative for nausea, vomiting, change in bowel habits MUSCULOSKELETAL: Negative for acute back or joint pain SKIN: Negative for rash NEURO: Negative for headaches, seizures, focal neurological deficits All other systems negative. VITAL SIGNS: BP Temp Pulse Resp SpO2 MENTAL STATUS EXAMINATION: Appearance: Appropriately groomed, appears stated age Behavior: Appropriately engaged Psychomotor: No psychomotor agitation Cognition Level of Consciousness: Awake and alert. No fluctuation in wakefulness. Orientation: Grossly oriented Memory: Intact Attention/Concentration: Good Fund of Knowledge: Able to demonstrate an awareness of current events. Mood: Anxious Affect: Congruent to mood Speech/Language: Appropriate tone, prosody, poncho, phonetics, and syntax Thought Form: Goal-directed. No loosening of associations. Thought Content: No delusions noted or endorsed. Perceptual Disturbances: Did not appear to respond to auditory stimuli. Safety: Suicidal Ideations: No suicidal ideation, intent or plan. Homicidal Ideations: No homicidal ideation, intent or plan. Insight: Appropriate Judgment: Appropriate I spent a total of 28 minutes on the date of the service which included preparing to see the patient, [id number] patient care, completing clinical documentation, and counseling and educating the patient/family/caregiver, ordering medications/labs. Leslee Chappell APRN.STUDIO MANAGER September 28, 2021 10:09 AM documented in this encounter [facility] 05-26-2020 History of Past i llness Narrative Problem Noted Date Resolved Date Supervision of other normal , [facility] 05/26/2020 10/09/2020 History of maternal perineal laceration, current ly 12/02/2016 08/26/2017 Overview: 12/02/2016 History of 2nd degree perineal laceration with previous Encounter for supervision of other normal , third trimester 07/15/2014 08/26/2017 documented as of this encounter (statuses as of 09/28/2021) [facility] History of Past illness Narrative* Problem Noted Date Resolved Date [facility] other [facility] 10/09/2020 History of maternal perineal laceration, current ly 12/02/2016 08/26/2017 Overview: 12/02/2016 History of 2nd degree perineal laceration with previous Encounter for supervision of other normal , third trimester 07/15/2014 08/26/2017 documented as of this encounter (statuses as of 10/04/2021) [place] [address]-05-2021 History of Past illness Narrative* Problem Noted Date Resolved Date Supervision of other normal , [facility] 05/26/2020 10/09/2020 History of maternal perineal laceration, current ly 12/02/2016 08/26/2017 Overview: 12/02/2016 History of 2nd degree perineal laceration with previous Encounter for supervision of other normal , third trimester 07/15/2014 08/26/2017 documented as of this encounter (statuses as of 10/31/2021) [address]05-2021 History of Past illness Narrative* Problem Noted Date Resolved Date Supervision of other normal , [facility] 05/26/2020 10/09/2020 History of maternal perineal laceration, current ly 12/02/2016 08/26/2017 Overview: 12/02/2016 History of 2nd degree perineal laceration with previous Encounter for supervision of other normal , third trimester 07/15/2014 08/26/2017 documented as of this encounter (statuses as of 12/16/2021) [address]05-2021 History of Past illness Narrative* Problem Noted Date Resolved Date Supervision of other normal , antepart[facility] m 05/26/2020 10/09/2020 History of maternal perineal laceration, current ly 12/02/2016 08/26/2017 Overview: 12/02/2016 History of 2nd degree perineal laceration with previous Encounter for supervision of other normal , third trimester 07/15/2014 08/26/2017 documented as of this encounter (statuses as of 01/14/2022) [address]21 History of Past illness Narrative* Problem Noted Date Resolved Date Supervision of other normal , antepartu m 05/26/2020 10/09/2020 History of maternal perineal laceration, current ly 12/02/2016 08/26/2017 Overview: 12/02/2016 History of 2nd degree perineal laceration with previous Encounter for supervision of other normal , third trimester 07/15/2014 08/26/2017 documented as of this encounter (statuses as of 02/11/2022) [place] [address]05-2021 History of Past illness Narrative* Problem Noted Date Diagnosed Date Resolved Date Supervision of other normal , antepartum 05/26/2020 10/09/2020 History of maternal perineal laceration, currently 12/02/2016 08/26/2017 Overview: 12/02/2016 History of 2nd degree perineal laceration with previous Encounter for supervision of other normal , third trimester 07/15/2014 08/26/2017 documented as of this encounter (statuses as of 01/31/2023) [place] [address]05-2021 History of Past illness Narrative* Problem Noted Date Diagnosed Date Resolved Date Supervision of other normal , antepartum 05/26/2020 10/09/2020 History of maternal perineal laceration, currently 12/02/2016 08/26/2017 Overview: 12/02/2016 History of 2nd degree perineal laceration with previous Encounter for supervision of other normal , third trimester 07/15/2014 08/26/2017 documented as of this encounter (statuses as of 02/24/2023) [facility] note* Diagnosis CHRISTINA (generalized anxiety disorder)- Primary Generalized anxiety disorder [facility] [place] [facility] Diagnosis Encounter for gynecological examination (general) (routine) without abnormal findings- Primary documented in this encounter [facility] note* Diagnosis CHRISTINA (generalized anxiety disorder)- Primary Generalized anxiety disorder documented in this encounter [facility] note* Diagnosis CHRISTINA (generalized anxiety disorder)- Primary Generalized anxiety disorder documented in this encounter [facility] noteNo assessment information availableWDayton [facility] Work Phone: Evaluation note* Diagnosis Encounter for gynecological examination (general) (routine) without abnormal findings- Primary Secondary dysmenorrhea Dysmenorrhea Irregular menses Irregular menstrual cycle documented in this encounter [facility] note* Diagnosis Secondary dysmenorrhea Dysmenorrhea Irregular menses Irregular menstrual cycle documented in this encounter [facility] note* Diagnosis Herpes zoster with complication- Primary Herpes zoster with unspecified complication documented in this encounter [facility] note* Diagnosis Urinary frequency- Primary Urinary tract infection with hematuria, site unspecified documented in this encounter [facility] for referral (narrative)* Diagnostic Procedure Only (Routine) - Authorized Specialty Diagnoses / Procedures Referred By Terry zamora Referred To Contact US IMAGING Diagnoses Secondary dysmenorrhea Irregular menses Procedures US FEMALE PELVIS TRANSVAG US TRANSVAGINAL Symone Orozco APRN.CNM [address] [place] [place] [address] Us Imaging [facility] Referral ID Status Reason Start Date Expiration Date Visits Requested Visits Authorized [id number] Authorized Auto-Generat ed Referral 01/24/2023 02/23/2024 1 1 [facility] for referral (narrative)* Diagnostic Procedure Only (Routine) - Closed Specialty Diagnoses / Procedures Referred By Terry zamora Referred To Contact US IMAGING Diagnoses Secondary dysmenorrhea Irregular menses Procedures US FEMALE PELVIS TRANSVAG US TRANSVAGINAL Symone Orozco APRN.CNM [address] [place] [place] [address] [place] [id number] Referral ID Status Reason Start Date Expiration Date V isits Requested Visits Authorized [id number] Closed Auto-Generate d Referral 01/24/2023 02/23/2024 1 1 [facility] Advance Directives No Advanced Directives Records Found Advance Directive Response Recorded Date/ Time Living Will No September 22, 2020 7 :25pm Power of Drilling Inspector No September 22, 2020 7:25pm Advance Directive Response Recorded Date/ Time Living Will No September 22, 2020 8 :25pm Power of Drilling Inspector No September 22, 2020 8:25pm Chief Complaint and Reason for Visit Chief Complaint Hematuria, unspecifi ed Chief Complaint Hematuria, unspecifi ed UTI Summary Purpose Family History No Family History Records FoundNo Family History Records Found Additional Source Comments Source Comments (unrecognize d section and content) In the event this informatio n is protected by the Federal Confidentiality of Alcohol and Drug Abuse Patient Records regulations: The Federal rules restrict any use of the information to criminally investigate or prosecute any alcohol or drug abuse patient.[facility] the event this information is protected by the Federal Confidentiality of Alcohol and Drug Abuse Patient Records regulations: The Federal rules restrict any use of the information to criminally investigate or prosecute any alcohol or drug abuse patient.[facility] the event this information is protected by the Federal Confidentiality of Alcohol and Drug Abuse Patient Records regulations: The Federal rules restrict any use of the information to criminally investigate or prosecute any alcohol or drug abuse patient.[facility] the event this information is protected by the Federal Confidentiality of Alcohol and Drug Abuse Patient Records regulations: The Federal rules restrict any use of the information to criminally investigate or prosecute any alcohol or drug abuse patient.[facility] System[facility] the event this information is protected by the Federal Confidentiality of Alcohol and Drug Abuse Patient Records regulations: The Federal rules restrict any use of the information to criminally investigate or prosecute any alcohol or drug abuse patient.[facility] System[facility] the event this information is protected by the Federal Confidentiality of Alcohol and Drug Abuse Patient Records regulations: The Federal rules restrict any use of the information to criminally investigate or prosecute any alcohol or drug abuse patient.[facility] System[facility] the event this information is protected by the Federal Confidentiality of Alcohol and Drug Abuse Patient Records regulations: The Federal rules restrict any use of the information to criminally investigate or prosecute any alcohol or drug abuse patient.[facility] the event this information is protected by the Federal Confidentiality of Alcohol and Drug Abuse Patient Records regulations: The Federal rules restrict any use of the information to criminally investigate or prosecute any alcohol or drug abuse patient.[facility] System[facility] the event this information is protected by the Federal Confidentiality of Alcohol and Drug Abuse Patient Records regulations: The Federal rules restrict any use of the information to criminally investigate or prosecute any alcohol or drug abuse patient.[facility] SystemIn the event this information is protected by the Federal Confidentiality of Alcohol and Drug Abuse Patient Records regulations: The Federal rules restrict any use of the information to criminally investigate or prosecute any alcohol or drug abuse patient.[facility] SystemIn the event this information is protected by the Federal Confidentiality of Alcohol and Drug Abuse Patient Records regulations: The Federal rules restrict any use of the information to criminally investigate or prosecute any alcohol or drug abuse patient.[facility] Reason for Visit (unrecogniz ed section and content) Reason Comments Follow Up Anxiety Reason Comments Refill Request Reason Comments Yearly Exam Reason Comments Follow Up Reason Comments Yearly Exam Reason Comments Radiology US Specialty Diagnoses / Procedures Referred By Terry t Referred To Contact US IMAGING Diagnoses Secondary dysmenorrhea Irregular menses Procedures US FEMALE PELVIS TRANSVAG US TRANSVAGINAL Symone Orozco APRN.CN [address] [place] [address] [place] [id number] Referral ID Status Reason Start Date Expiration Date V isits Requested Visits Authorized [id number] Closed Auto-Generate d Referral 01/24/2023 02/23/2024 1 1 Reason Comments Rash right side, painful x 3 days Reason Comments Urinary Frequency Frequency, burning a nd urgency x 1 week Care Teams (unrecognized sec tion and content) Team Status: Active Member Role Status Dates No Primary Care Physician Family Provider Active No Primary Care Physician Primary Care Provider Active Team Status: Inactive Member Role Status Dates No Primary Care Physician Primary Care Provider Active Cyndy Palmer DO Attending Provider, Referring Pr ovider Active Team Status: Active Member Role Status Dates No Primary Care Physician Family Provider Active Berkley Choi NP-[place] Primary Care Provider Active Team Status: Inactive Member Role Status Dates CHAVEZ Briggs Primary Care Provi magali, Attending Provider, Referring Provider Active Team Status: Inactive Member Role Status Dates CHAVEZ Briggs Primary Care Provider Active Cyndy Palmer DO Attending Provider, Referring Pr ovider Active Team Status: Active Member Role Status Dates No Primary Care Physician Family Provider Active Cyndy Palmer DO Primary Care Provider Active Team Status: Inactive Member Role Status Dates Dr. Rosa Ballesteros MD Attending Provider, Referring P homar Active Cyndy Palmer DO Primary Care Provider Active Goals (unrecognized section and content) Goals may be documented in a n alternate sectionGoals may be documented in an alternate sectionGoals may be documented in an alternate sectionGoals may be documented in an alternate section INFORMATION SOURCE (unrecogn ized section and content) DATE CREATED AUTHOR 06/18/2024 [facility] DATE CREATED AUTHOR AUTHOR'S RUCHI MCARTHUR 11/07/2024 [facility] FOR RECORDS PERTAINING TO PATIENTS WHO ARE OR HAVE BEEN ENROLLED IN A CHEMICAL DEPENDENCY/SUBSTANCEABUSE PROGRAM, SOME INFORMATION MAY BE OMITTED. This clinical summary was aggregated from multiple sources. Caution should be exercised in using it in the provision of clinical care. This summary normalizes information from multiple sources, and as a consequence, information in this document may materially change the coding, format and clinical context of patient data. In addition, data may be omitted in some cases. CLINICAL DECISIONS SHOULD BE BASED ON THE PRIMARY CLINICAL RECORDS. [employer] [facility]. provides no warranty or guarantee of the accuracy or completeness of information in this document.
[2025-01-25 10:08] LABS: QNTFERON TB Mitogen Value > 10.00 IU/mL (.); QNTFERON TB Nil Value 0.09 IU/mL (.); QNTFERON TB1+ Ag Value 0.13 IU/mL (.); QNTFERON TB2+ Ag Value 0.09 IU/mL (.); QNTIFERON TB Positive Criteria Negative (Negative)
== END | disposition home or self-care (01) ==
LOC: MTLAB 09:35
PROVIDERS: PCP Family Medicine; Referring Provider Physician Assistant; Visit Provider Physician Assistant
DX: L40.0 Psoriasis vulgaris (principal)
CPT/HCPCS: 36415; 86480